=== PATIENT | female | born 1945 | race Caucasian/White ===

== ENCOUNTER → 2017-02-11 | Outpatient (CLI) | payer OTHER | LOC: FIMAGING 14:42 | PROVIDERS: ATTEND Family Medicine | DX: N63.23 Unspecified lump in the left breast, lower outer quadrant (principal) | CPT/HCPCS: 76641; G0204 ==

== ENCOUNTER 2017-02-17 06:46 | Day surgery (SDC) | payer OTHER ==
[2017-02-17] MEDS ORDERED: LR 1,000 ML IV ONE (07:17)
[2017-02-17 07:42] VITALS: PULSE 100
[2017-02-17] MEDS ORDERED: LIDO/EPI 1% **for epidural** 30 ML SDV ONE (08:00)
[2017-02-17] MEDS ORDERED: LIDOCAINE 1% 300 MG/30 ML SDV ONE (08:01)
[2017-02-17] MEDS ORDERED: BUPIVACAINE 0.5% 30 ML SDV ONE (08:02)
--- NOTE | 2017-02-17 08:04 | PDHPUP ---
History & Physical Update H&P update statement: This history and physical update is based on an assessment of the patient which was completed after admission or registration (within 24 hours), but prior to the surgery/procedure. H&P update: H&P reviewed & patient examined, no change in patient's condition since H&P completed
[2017-02-17 08:26] LABS: INR 1.24 (0.83-1.16); PROTIME(PATIENT) 15.8 SEC (12.0-15.0)
[2017-02-17] MEDS ORDERED: MIDAZOLAM 2 MG/2 ML VIAL ONE (08:34)
[2017-02-17] MEDS ORDERED: ROCURONIUM 50 MG/5 ML VIAL ONE ×2 (08:36→09:31)
[2017-02-17] MEDS ORDERED: PHENYLEPHRINE 10 MG/ML SDV ONE (08:36)
[2017-02-17] MEDS ORDERED: fentaNYL 100 MCG/2 ML INJ ONE (08:36)
[2017-02-17] MEDS ORDERED: PROPOFOL/EMULSION 500 MG/50 ML BOTTLE IV ONE (08:36)
[2017-02-17] MEDS ORDERED: LIDOCAINE 2% 5 ML SDV ONE (09:31)
[2017-02-17] MEDS ORDERED: ceFAZolin 1 GM VIAL ONE (09:31)
[2017-02-17] MEDS ORDERED: DEXAMETHASONE 4 MG/ML VIAL ONE (09:31)
[2017-02-17] MEDS ORDERED: ONDANSETRON 4 MG/2 ML VIAL ONE (09:31)
--- NOTE | 2017-02-17 09:39 | POSTANESTH ---
Post Anesthetic Evaluation Respiratory Status: Normal, Stable Level of Consciousness/Mental Status: Can Participate in Eval Pain Control: Adequate, Prn Tx Ordered Nausea/Vomiting Control: Adequate, Prn Tx Ordered
--- NOTE | 2017-02-17 09:42 | PDANEPAE ---
ANE History of Present Illness 71 year old female for excision supraclavicular node on right. ANE Past Medical History - Cardiovascular History Hx Hypertension: No Hx Arrhythmias: No Hx Chest Pain: No Hx Coronary Artery / Peripheral Vascular Disease: No Hx CHF / Valvular Disease: No Hx Palpitations: No Cardiovascular History Comment: CHOLESTEROL - Pulmonary History Hx COPD: Yes Hx Asthma/Reactive Airway Disease: No Hx Recent Upper Respiratory Infection: No Hx Oxygen in Use at Home: No Hx Sleep Apnea: No Sleep Apnea Screening Result - Last Documented: Negative Pulmonary History Comment: SPIRIVA - Neurologic History Hx Cerebrovascular Accident: No Hx Seizures: No Hx Dementia: No - Endocrine History Hx Diabetes: No - Renal History Hx Renal Disorders: Yes Renal History Comment: 18MTHS AGO CREATINE 1.6, NOW LOWER - Liver History Hx Hepatic Disorders: No - Neurological & Psychiatric Hx Hx Neurological and Psychiatric Disorders: No - Cancer History Hx Cancer: No - Congenital Disorder History Hx Congenital Disorders: No - GI History Hx Gastrointestinal Disorders: Yes Gastrointestinal History Comment: DIVERTICULITIS, COLOSTOMY - Other Health History Other Health History: NONE - Chronic Pain History Chronic Pain: No - Surgical History Prior Surgeries: RUPTURED COLON.RIGHT KNEE. BLOOD CLOT TO RIGHT FOOT. DEBRIDMENT OF RIGHT FOOT ANE Review of Systems Review of Systems: - Exercise capacity METS (RN): 4 METS ANE Patient History - Allergies Allergies/Adverse Reactions: oxycodone Allergy (Mild, Verified 02/13/17 15:41) Itching - Home Medications Home Medications: Atorvastatin Calcium 20 mg PO DAILY 02/13/17 [Last Taken 02/16/17] Warfarin Sodium 3 mg PO DAILY 02/13/17 [Last Taken 02/12/17] Aspirin 81mg (*) 81 mg PO DAILY 02/17/17 [Last Taken 02/16/17] Metoprolol Tartrate 25 mg PO DAILY 02/17/17 [Last Taken Unknown] - NPO status NPO Since - Liquids (Date): 02/16/17 NPO Since - Liquids (Time): 21:00 NPO Since - Solids (Date): 02/16/17 NPO Since - Solids (Time): 15:00 - Anes Hx Anes Hx: no prior problems - Smoking Hx Smoking Status: Former smoker - Family Anes Hx Family Hx Anesthesia Complications: NONE ANE Labs/Vital Signs - Vital Signs Blood Pressure: 123/72 Heart Rate: 100 Respiratory Rate: 16 O2 Sat (%): 91 Height: 157.48 cm Weight: 81.193 kg ANE Physical Exam - Airway Mallampati Score: Class 2 Mouth exam: dentures - ASA Status ASA Status: II ANE Anesthesia Plan Anesthesia Plan: GA w LMA
--- NOTE | 2017-02-17 10:11 | POSTOPPROG ---
Post Op Note Date of Operation: 02/17/17 Surgeon: Katarzyna Lombardi Anesthesiologist: andre Anesthesia: GET(General Endotracheal) Pre-op Diagnosis: lymphadenopathy Post-op Diagnosis: same Indication: 71 yo with lymphadenopathy Procedure: excise deep supraclav lymph node Findings: firm nodes Inf/Abcess present in the surg proc area at time of surgery?: No Specimen(s): lymph node
[2017-02-17] MEDS ORDERED: fentaNYL 100 MCG/2 ML INJ IVP PRN (10:19)
[2017-02-17] MEDS ORDERED: ceFAZolin 2 GM/SWFI 2 GM/20 ML SYR IVP ONE (10:19)
[2017-02-17] MEDS ORDERED: NALOXONE HCL 0.4 MG/ML INJ IVP PRN (10:19)
[2017-02-17] MEDS ORDERED: ONDANSETRON 4 MG/2 ML VIAL IVP PRN (10:19)
[2017-02-17] MEDS ORDERED: DEXAMETHASONE 4 MG/ML VIAL IVP PRN (10:19)
[2017-02-17] MEDS ORDERED: ALBUTEROL 3 ML DEYVIAL IH PRN (10:19)
[2017-02-17 11:19] VITALS: RESP 18; TEMP 97.7
[2017-02-17 11:28] VITALS: BP 119/81
[2017-02-17 11:35] VITALS: O2SAT 94
--- NOTE | 2017-02-17 14:24 | GOP ---
[f rep st] OPERATIVE REPORT DATE OF OPERATION: 02/17/2017 SURGEON: Katarzyna Lombardi MD ANESTHESIA: General. ANESTHESIOLOGIST: Lewis Adan MD. PREOPERATIVE DIAGNOSIS: Lymphadenopathy. POSTOPERATIVE DIAGNOSIS: Lymphadenopathy. PROCEDURE PERFORMED: Excision of deep supraclavicular lymph node, ultrasound- guided. FINDINGS: Firm lymphadenopathy. SPECIMENS: Lymph node for pathology. ESTIMATED BLOOD LOSS: 5 cc. INDICATIONS: Sarah Winston is a 71-year-old woman who was found to have significant mediastinal and paratracheal lymphadenopathy. She also has a lesion on her left breast. She presents for excision of a lymph node. DESCRIPTION OF PROCEDURE: Patient was brought into the operating room, placed supine on the table, and general anesthesia was administered. Her bilateral neck and chest were prepped and draped in the usual sterile fashion. I used the ultrasound, identified the trachea , the internal jugular vein, the carotid and the external jugular vein. In between the internal jugular vein and the external jugular vein was a solid nodule. I made an incision in a natural skin crease above the right clavicle. I deepened my dissection down through the subcutaneous tissues. I divided the platysma. I continued my dissection and the strap muscles. I continued my dissection, and carefully using scissors, was able to dissect tissue free. I continued to use ultrasound was able to identify the solid nodule. I grasped this with an Allis clamp and circumferentially dissected it. I clipped the base and removed the lymph node. I sent this to Pathology for fresh. Hemostasis was achieved in the cavity. I placed Pete in the wound. I closed the muscles with 3-0 Vicryl. I closed the skin with 3-0 Vicryl followed by 4-0 Monocryl. Mastisol, Steri-Strips, and a sterile dressing were applied. She was awakened in the operating room, extubated, and transferred to PACU in stable condition. /[id number]/MODL MTDD
== END 2017-02-17 11:45 | disposition home or self-care (01) ==
LOC: FSGY 06:46
PROVIDERS: ATTEND Surgery
PROC: 07T10ZZ Resection of Right Neck Lymphatic, Open Approach (ICD-10-PCS; principal; 2017-02-17 08:30)
DX: R59.1 Generalized enlarged lymph nodes (principal)
CPT/HCPCS: J0690; J1100; J2250; J2370; J2405; J2704; J3010

== ENCOUNTER 2017-02-24 08:56 | Inpatient (IN) | payer OTHER ==
--- NOTE | 2017-02-24 09:12 | CPEKG ---
Heart Rate: 98 RR Interval: 612 P-R Interval: 136 QRSD Interval: 78 QT Interval: 348 QTC Interval: 445 P [place]: 52 QRS [place]: 56 T Wave [place]: 48 EKG Severity - NORMAL ECG - EKG Impression: SINUS RHYTHM Electronically Signed By: Neeraj Hernandez 24-Feb-2017 09:39:03
[2017-02-24] MEDS ORDERED: HYDROCODONE/APAP 5/325 TAB PO ONE (09:31)
--- NOTE | 2017-02-24 09:34 | EDPHY ---
H & P Time Seen by Provider: 02/24/17 09:06 HPI/ROS: CHIEF COMPLAINT: Left-sided chest pain HISTORY OF PRESENT ILLNESS: Patient is a history of DVT and PE and this past Thursday night started having left sided chest pain which is worse with deep breath. She had a fever up to 101 at home. Chest pain is mild at rest but severe when she takes a deep breath associated with a little bit of a cough. She did stop her warfarin to have a right sided supraclavicular lymph node biopsy on February 17 and has not had her INR checked since. Chest pain does not radiate. Has been constant for the last 3 days. REVIEW OF SYSTEMS: Eye: no change in vision ENT: no sore throat Cardiac: HPI Pulmonary: HPI Abdomen: no vomiting, diarrhea, abdominal pain Musculoskeletal: No leg swelling Skin: no rash Neuro: no headache Constitutional: HPI : no urinary symptoms A comprehensive 10 point review of systems is otherwise negative aside from elements mentioned in the history of present illness. PAST MEDICAL HISTORY: Includes recent diagnosis of lung cancer, DVT and PE, colostomy with appliance, COPD Social history: here with spouse General Appearance: Alert and conversant, cooperative. Eyes: No scleral icterus. ENT, Mouth: Normal mucous membranes. Respiratory: Normal respiratory effort, breath sounds equal, lungs are clear to auscultation. Splinting. Cardiovascular: Regular rate and rhythm. Gastrointestinal: Abdomen is soft and non tender. Ostomy is soft. Neurological: Alert, face symmetric, normal motor and sensory in extremities. Skin: Warm and dry, no rashes. No urticaria. Musculoskeletal: No peripheral edema. No peripheral edema. Psychiatric: Not agitated. Emergency Department course/MDM: Unlikely to be ACS. Normal EKG. Plan for INR and labs to include troponin. Patient has at least a moderate probability for pulmonary embolism even if she has therapeutic INR. History of cancer, specifically lung cancer, tachycardic on arrival, pleuritic left-sided chest pain. Plan for CT angiography. Oral [place] as she has taken that before without any adverse reaction. 1050: CTA positive for small volume pulmonary embolism. Pain is much better. Plan to admit to the hospital with Lovenox subcu bridge until her INR is therapeutic. Smoking Status: Former smoker Constitutional: Initial Vital Signs Temperature (C) 37.1 C 02/24/17 08:57 Heart Rate 112 H 02/24/17 08:57 Respiratory Rate 18 02/24/17 08:57 Blood Pressure 126/80 H 02/24/17 08:57 O2 Sat (%) 94 02/24/17 08:57 O2 Delivery Mode Room Air Allergies/Adverse Reactions: oxycodone Allergy (Mild, Verified 02/24/17 08:58) Itching Home Medications: Medication Instructions Recorded Atorvastatin Calcium [Lipitor 20 20 mg PO HS 02/13/17 mg (*)] Warfarin Sodium [Coumadin 3MG (*)] 3 mg PO DAILY16 02/13/17 Aspirin EC [Aspirin EC 81 mg (*)] 81 mg PO HS 02/17/17 Ascorbic Acid [Vitamin C 500 mg 1,000 mg PO DAILY 02/24/17 (*)] Cholecalciferol Vit D3 [Vitamin D3 2,000 units PO DAILY 02/24/17 (*)] Folic Acid [Folic Acid 1 MG (*)] 1 mg PO HS 02/24/17 [place]/Supplements -Info Only 1 ea PO DAILY 02/24/17 Multivitamins [Multivitamin (*)] 1 each PO DAILY 02/24/17 Medical Decision Making - Diagnostics EKG Interpretation: 12-lead EKG interpreted by me; official reading is in trace master. My interpretation is sinus rhythm rate 98 no ischemic changes. Imaging Results: Imaging Impressions Chest/Thorax CTA 02/24/17 10:04 Impression: 1. Scattered pulmonary emboli, as above. Left lingular consolidation likely represents pulmonary infarct. 2. Bulky right mediastinal/hilar lymphadenopathy extending into the bilateral subclavicular regions is overall slightly decreased since prior exam. The patient has reported history of recently diagnosed right lung cancer. 3. Mild leftward bowing of the interventricular septum without reflux of contrast into the IVC or hepatic veins is of unclear clinical significance. The main pulmonary artery is normal in size. 4. Right upper lobe peripheral pleural-parenchymal thickening/nodularity which may represent the primary tumor. Dr. Browning discussed these findings by telephone with JANETT Fitzpatrick on 2017 at 10:48 hours. Differential Diagnosis: Differential diagnosis considered for chest pain including but not limited to myocardial ischemia, aortic dissection, pericarditis, pulmonary embolus, chest wall pain, pleural inflammation and pulmonary infectious causes. Consult/Admit Bed Type: [place] [id number] - Data Points Laboratory Results: Laboratory Results 02/24/17 09:00 02/24/17 09:15 02/24/17 02/24/17 02/24/17 09:15 09:15 09:00 WBC 9.63 10^3/uL H 10^3/uL (3.80-9.50) RBC 4.37 10^6/uL 10^6/uL (4.18-5.33) Hgb 14.1 g/dL g/dL (12.6-16.3) Hct 41.3 % % (38.0-47.0) MCV 94.5 fL fL (81.5-99.8) MCH 32.3 pg pg (27.9-34.1) MCHC 34.1 g/dL g/dL (32.4-36.7) RDW 13.7 % % (11.5-15.2) Plt Count 150 10^3/uL 10^3/uL (150-400) MPV 9.1 fL fL (8.7-11.7) Neut % (Auto) 73.0 % % (39.3-74.2) Lymph % (Auto) 14.5 % L % (15.0-45.0) [place] % (Auto) 10.9 % % (4.5-13.0) Eos % (Auto) 1.0 % % (0.6-7.6) Baso % (Auto) 0.3 % % (0.3-1.7) Nucleat RBC Rel Count 0.0 % % (0.0-0.2) Absolute Neuts (auto) 7.02 10^3/uL H 10^3/uL (1.70-6.50) Absolute Lymphs (auto) 1.40 10^3/uL 10^3/uL (1.00-3.00) Absolute Monos (auto) 1.05 10^3/uL H 10^3/uL (0.30-0.80) Absolute Eos (auto) 0.10 10^3/uL 10^3/uL (0.03-0.40) Absolute Basos (auto) 0.03 10^3/uL 10^3/uL (0.02-0.10) Absolute Nucleated RBC 0.00 10^3/uL 10^3/uL (0-0.01) Immature Gran % 0.3 % % (0.0-1.1) Immature Gran # 0.03 10^3/uL 10^3/uL (0.00-0.10) PT 21.0 SEC H SEC (12.0-15.0) INR 1.80 H (0.83-1.16) APTT 36.2 SEC SEC (23.0-38.0) Sodium 141 mEq/L mEq/L (134-144) Potassium 4.3 mEq/L mEq/L (3.5-5.2) Chloride 107 mEq/L mEq/L (97-110) Carbon Dioxide 21 mEq/l L mEq/l (22-31) Anion Gap 13 mEq/L mEq/L (8-16) BUN 11 mg/dL mg/dL (7-23) Creatinine 1.0 mg/dL mg/dL (0.6-1.0) Estimated GFR 55 Glucose 110 mg/dL H mg/dL (70-100) Calcium 9.6 mg/dL mg/dL (8.5-10.4) Troponin I < 0.012 ng/mL ng/mL (0.000-0.034) Medications Given: Hydrocodone Bitart/Acetaminophen ([place] 5/325) 1 - 2 tab PO Q4HRS PRN PRN Reason: Pain, Moderate Able to Take PO Stop: 03/06/17 13:43 Last Admin: 02/24/17 14:40 Dose: 2 tab Discontinued Medications Hydrocodone Bitart/Acetaminophen ([place] 5/325) 1 tab PO EDNOW ONE Stop: 02/24/17 09:32 Last Admin: 02/24/17 09:59 Dose: 1 tab Enoxaparin Sodium (Lovenox) 80 mg SC EDNOW ONE Stop: 02/24/17 10:59 Last Admin: 02/24/17 11:35 Dose: 80 mg Departure - Departure Disposition: [facility] Acute Clinical Impression: Pulmonary embolism Qualifiers: Pulmonary embolism type: other Chronicity: acute Acute cor pulmonale presence: without acute cor pulmonale Qualified Code(s): I26.99 - Other pulmonary embolism without acute cor pulmonale Condition: Good
[2017-02-24 09:45] LABS: PLATELET COUNT 150 10^3/uL (150-400)
[2017-02-24 09:54] LABS: INR 1.8 (0.83-1.16)
[2017-02-24] MEDS ORDERED: IOPAMIDOL (ISOVUE 370) 100 ML BTL IV ONE (10:10)
[2017-02-24] MEDS ORDERED: ENOXAPARIN 80 MG/0.8 ML SYR SC ONE (10:58)
[2017-02-24] MEDS ORDERED: ONDANSETRON DISINTEGRATING 4 MG TAB PO PRN (11:31)
[2017-02-24] MEDS ORDERED: ONDANSETRON 4 MG/2 ML VIAL IVP PRN (11:31)
[2017-02-24] MEDS ORDERED: ACETAMINOPHEN 325 MG TAB PO PRN (11:31)
--- NOTE | 2017-02-24 14:30 | ASMTCASEMG ---
Living Arrangements What is your living Answers: With Spouse arrangement? Who do you live with? Type Of Residence What kind of residence do Answers: House you live in? Discharge Plan Comments Coordination Status Comments Notes: Pt is a 71 y/o female admitted for left sided chest pain. Pt will most likely d/c independent when medically stable w/ supportive . No therapies ordered at this time. CM available for d/c needs. Plan: Independent Date Signed: 02/24/2017 02:29 PM Electronically Signed By:YAIR Norwood
[2017-02-24] MEDS: HYDROCODONE/APAP 5/325 TAB PO PRN ×3 (14:40→22:40)
[2017-02-24] MEDS ORDERED: WARFARIN SODIUM 5 MG TAB PO SCH (16:00)
[2017-02-24] MEDS ORDERED: WARFARIN SODIUM 3 MG TAB PO SCH ×2 (16:00)
[2017-02-24] MEDS ORDERED: SIMETHICONE 80 MG TAB CHEW PO PRN (19:14)
--- NOTE | 2017-02-24 19:45 | GHP ---
[f rep st] HISTORY AND PHYSICAL DATE OF ADMISSION: 02/24/2017 CHIEF COMPLAINT: Chest pain, new diagnosis pulmonary embolism. HISTORY OF PRESENT ILLNESS: The patient is a 71-year-old female who was recently diagnosed with meta static adenocarcinoma with a lung primary on a lymph node biopsy that was performed on 02/17/2017 as an outpatient by Dr. Lombardi. She had been on Coumadin because of a lower extremity DVT previously, bu t this was held prior to the procedure and then restarted after the procedure. She was not on bridgi ng Lovenox. She reports that about 3 days ago she was woken from sleep with a sharp pain in her left lateral chest that has continued. She had some shortness of breath intermittently. She noted some intermittent low-grade temperatures and thought maybe she was getting a viral illness, but she report s that last night her temperature went up to 101, so she came to the emergency department for evaluat ion. She had a CT scan and was found to have multiple pulmonary emboli. She was admitted to the [facility] for observation because of the comorbidity of newly diagnosed metastatic adenocarcinoma. She is seeing Dr. Okeefe at the [facility] but has not initiated any therapies as th ey are still doing staging evaluations. She is scheduled to do followup labs, CAT scans, MRIs at [facility] in the next few weeks. She currently denies shortness of breath. She still has mild left-sided chest pain in a point on her left lateral side, but denies any anterior chest pain. She denies any vomiting or diarrhea. She de nies feeling feverish today. PAST MEDICAL HISTORY: Newly diagnosed metastatic adenocarcinoma with a lung primary, pending staging and therapies with Dr. Okeefe at [facility]. History of DVT, chronic anticoagulati on. History of diverticulitis, status post rupture. Glucose intolerance. Peripheral artery disease . Previous history of renal insufficiency. Hypertension, hyperlipidemia, and COPD. PAST SURGICAL HISTORY: Colon resection in 2013 with a colostomy. Stent in the right lower extremity and a lymph node biopsy. ALLERGIES: Oxycodone. FAMILY HISTORY: Noncontributory. SOCIAL HISTORY: She is , with 3 children. She denies any alcohol use. She is a former tobac co user with over a 50-pack year history, but quit in 2009. REVIEW OF SYSTEMS: Negative, except as noted above. MEDICATIONS: Multivitamin daily, vitamin C daily, aspirin 81 mg daily, 20 mg Lipitor nightly, vitami n D3 2000 units daily, folic acid 1 mg nightly, Spiriva inhaler daily, Coumadin 3 mg on Thursday, , Thursday, , and Thursday, 4.5 mg on Thursday and Thursday. PHYSICAL EXAMINATION: GENERAL: She is a very pleasant, elderly female in no apparent distress. VIT AL SIGNS: Blood pressure is 128/61, heart rate of 85. Pulse ox is 93% on room air. Temperature is 99.3. GENERAL: She is a very pleasant, elderly female in no apparent distress. HEENT: Normocephal ic, atraumatic. Extraocular movements are intact. Oral cavity: Oropharynx is moist. NECK: Supple . No lymphadenopathy or JVD noted. CARDIOVASCULAR: Regular rate and rhythm, without murmur. LUNGS : Clear to auscultation bilaterally. No rhonchi, wheezes, or crackles. ABDOMEN: Soft, normoactive bowel sounds, nontender, nondistended. Colostomy site clean, dry, and intact. BREASTS: Deferred. : Deferred. SKIN: No visible rashes. EXTREMITIES: She has trace to 1+ edema bilaterally (says that is chronic for her). NEURO: Nonfocal. PSYCH: Awake and oriented. No evidence of significan t depression or anxiety. LABORATORY DATA: White blood cell count of 9.6, hemoglobin 14.1, hematocrit of 41.3, platelet count of 150. INR is 1.8. Chemistry: Sodium 141, potassium 4.3, chloride 107, CO2 of 21, BUN of 11, crea tinine 1.0, glucose 110, calcium 9.6, troponin less than 0.12. Chest CT personally reviewed by me sh ows scattered pulmonary emboli in the right middle lobe, right posterior basal, right superior segmen abran and the left inferior lingular arterial branches, also consolidation in the lingula, likely from infarction. Also noting significant peribronchial nodules, right upper lobe thickening/nodularity, b ulky mediastinal and hilar lymphadenopathy that go into the supraclavicular areas and nodes in the ri ght hilum that impinge upon the right pulmonary arteries, paratracheal masses. Degenerative changes at the spine. EKG shows sinus rhythm with a normal rate, no ST changes noted, normal axis. ASSESSMENT/PLAN: 1. Acute pulmonary emboli with likely lingular infarct. She is subtherapeutic on Coumadin that had recently been held for a procedure. We will continue with her routine doses as she reports these hav e been stable for several years. Is given Lovenox at treatment dosing. Anticipate that she may be a ble to discharge tomorrow if vital signs remain stable and we were able to arrange for home Lovenox b ridging if still needed. She is not hypoxic. She does not appear to be in respiratory distress curr ently. 2. Newly diagnosed metastatic adenocarcinoma of the lung. She is pending outpatient staging and jeremy atment. If she is staying more than observation status, would consider consulting Hematology/Oncolog y to see if they want to start any of the workup as an inpatient. 3. Hyperlipidemia. Continue home medications. 4. Hypertension. Continue home medications. 5. Deep vein thrombosis. Anticoagulation as above. Full code status. DISPOSITION: Admitted for observation status as likely able to go home tomorrow if vitals stable, if she remains stable overnight. PCP is Dr. Chan, and PCP Oncology is Dr. Okeefe. Copy requested to: Dr. Sary Chan /[id number]/MODL
[2017-02-24] MEDS: ENOXAPARIN 80 MG/0.8 ML SYR SC SCH (20:37)
[2017-02-24] MEDS ORDERED: ATORVASTATIN CALCIUM 20 MG TAB PO SCH (21:00)
[2017-02-24] MEDS ORDERED: ASPIRIN EC 81 MG TAB PO SCH (21:00)
[2017-02-24] MEDS ORDERED: FOLIC ACID 1 MG TAB PO SCH (21:00)
--- NOTE | 2017-02-24 22:05 | SOAPPROG ---
SOAP Progress Note Assessment/Plan: Assessment: s/p excision of deep supraclavicular lymph node dx lung cancer readmitted for dvt Incision cdi F/U prn Plan: 02/24/17 22:03 Objective: Vital Signs Temp Pulse Resp BP Pulse Ox 37.2 C 103 H 18 117/69 92 02/24/17 20:00 02/24/17 20:00 02/24/17 20:00 02/24/17 20:00 02/24/17 20:00 PT 21.0 SEC (12.0-15.0) H 02/24/17 09:15 INR 1.80 (0.83-1.16) H 02/24/17 09:15 ICD10 Worksheet Patient Problems: Problems Problem Status Onset Pulmonary embolism Acute
[2017-02-25] MEDS: HYDROCODONE/APAP 5/325 TAB PO PRN ×2 (05:10→09:48)
[2017-02-25 06:00] LABS: INR 2.03 (0.83-1.16)
[2017-02-25 07:58] VITALS: BP 105/68; PULSE 111; RESP 20; TEMP 98.6; O2SAT 94
[2017-02-25] MEDS: ENOXAPARIN 80 MG/0.8 ML SYR SC SCH (08:05)
[2017-02-25] MEDS ORDERED: CHOLECALCIFEROL VIT D3 1,000 UNITS TAB PO SCH (09:00)
[2017-02-25] MEDS ORDERED: ASCORBIC ACID 500 MG TAB PO SCH (09:00)
[2017-02-25] MEDS ORDERED: TIOTROPIUM INHALER 18 MCG/DOSE 5 DOSE/MDI IH SCH (09:00)
--- NOTE | 2017-02-25 10:54 | HOSPPROG ---
Hospitalist Progress Note Assessment/Plan: Patient is a 71-year-old female who was recently diagnosed with metastatic adenocarcinoma of the lung. She had a lymph node biopsy performed on February 17. She had been on Coumadin because the lower extremity DVT previously but this was held prior to procedure and then restarted. She had a CT scan and was found to have multiple pulmonary emboli. Today is my 1st encounter with the patient. Chart reviewed. * pulmonary emboli -on Coumadin -she is not hypoxic -will bridge with Lovenox twice daily until she is therapeutic for 2 days -CTA shows likely a pulmonary infarct -she has had some episodic chest pain related to the pulmonary emboli, troponin is negative -she will get her INR checked this Thursday * newly diagnosed stood metastatic adenocarcinoma of the lung -will be seen Dr. Okeefe in the outpatient setting * hyperlipidemia * hypertension -blood pressure is 105/68 * plan. Discharge home with further follow up with Dr. Okeefe. Subjective: Private is feeling very well and is anxious to be discharged. She is not short of breath while walking. Objective: Vital Signs Temp Pulse Resp BP Pulse Ox 37 C 111 H 20 105/68 94 02/25/17 07:54 02/25/17 07:54 02/25/17 07:54 02/25/17 07:54 02/25/17 07:54 PT 23.0 SEC (12.0-15.0) H 02/25/17 05:15 INR 2.03 (0.83-1.16) H 02/25/17 05:15 - Physical Exam Constitutional: no apparent distress, appears nourished, not in pain Eyes: PERRL Ears, Nose, Mouth, Throat: hearing normal Cardiovascular: regular rate and rhythym Respiratory: no respiratory distress, clear to auscultation Skin: warm Musculoskeletal: full muscle strength Neurologic: AAOx3 Psychiatric: interacting appropriately, not anxious, not encephalopathic ICD10 Worksheet Patient Problems: Problems Problem Status Onset Pulmonary embolism Acute
--- NOTE | 2017-02-25 12:02 | GDS ---
[f rep st] DISCHARGE SUMMARY DISCHARGE DIAGNOSES: 1. Pulmonary emboli. 2. Newly-diagnosed metastatic adenocarcinoma of the lung. 3. Hyperlipidemia. 4. Hypertension. HISTORY OF PRESENT ILLNESS: Briefly, the patient is a 71-year-old female who was recently diagnosed with metastatic adenocarcinoma of the lung. She had a lymph node biopsy performed on 02/17 as an outpatient. She had been on Coumadin because of a lower extremity DVT that was held prior to procedure and then restarted after the procedure. She had 3 days where she had a sharp pain in the left lateral chest area, and it was noted that she had a pulmonary emboli. A CT of the chest showed scattered pulmonary in the right middle lobe, right posterior basal, right superior segmental, and left inferior lingular arterial branches. Also consolidation in the lingula, likely from an infarction. She is feeling markedly better today. She is no longer short of breath but having some intermittent pain with deep breathing. She will be discharged home and further followup with Dr. Okeefe in the outpatient setting. HOSPITAL COURSE: 1. Pulmonary emboli. She had a CTA that shows likely a pulmonary infarct. She will get her INR checked on this Thursday. Will bridge her on Lovenox twice a day until she is therapeutic with an INR of 2.5 for 2 days. 2. Newly-diagnosed metastatic adenocarcinoma of the lung. She will follow up with Dr. Okeefe. 3. Hyperlipidemia, statin. 4. Hypertension. Blood pressure is 105/68. DISCHARGE CONDITION: Stable. Blood pressure is 105/68, heart rate was 90 during my evaluation. O2 sats on room air 94%, temperature is 37 degrees Celsius. MEDICATIONS AT DISCHARGE: Please see the EMR. DISCHARGE INSTRUCTIONS: 1. To follow up with Dr. Okeefe in the outpatient setting. 2. If she continues to have any shortness of breath or chest pain, to return to the ER. Copy requested to: Sary /[id number]/MODL MTDD
[2017-02-25] MEDS ORDERED: WARFARIN SODIUM 3 MG TAB PO SCH (16:00)
== END 2017-02-25 13:03 | disposition home or self-care (01) | DRG 176 ==
LOC: OBSVTOIN 11:32 → F3E 12:45
PROVIDERS: ADMIT Family Medicine; ATTEND Internal Medicine
DX: I26.99 Other pulmonary embolism without acute cor pulmonale (principal); C34.90 Malignant neoplasm of unspecified part of unspecified bronchus or lung; C77.1 Secondary and unspecified malignant neoplasm of intrathoracic lymph nodes; E74.39 Other disorders of intestinal carbohydrate absorption; I73.9 Peripheral vascular disease, unspecified; I10 Essential (primary) hypertension; E78.5 Hyperlipidemia, unspecified; J44.9 Chronic obstructive pulmonary disease, unspecified; Z79.01 Long term (current) use of anticoagulants; Z86.718 Personal history of other venous thrombosis and embolism
CPT/HCPCS: J1650; Q9967

== ENCOUNTER → 2017-03-03 | Outpatient (CLI) | payer OTHER ==
[~2017-03-03] MED LIST: GADOBUTROL 10 ML VIAL IVP ONE
== END ==
LOC: FIMAGING 07:13
PROVIDERS: ATTEND Internal Medicine Hematology & Oncology
DX: Z03.89 Encounter for observation for other suspected diseases and conditions ruled out (principal); C34.90 Malignant neoplasm of unspecified part of unspecified bronchus or lung
CPT/HCPCS: 70553; A9585

== ENCOUNTER 2017-03-13 06:52 | Day surgery (SDC) | payer OTHER ==
[2017-03-13] MEDS ORDERED: ceFAZolin 2 GM/SWFI 2 GM/20 ML SYR IVP ONE (06:57)
[2017-03-13] MEDS ORDERED: LR 1,000 ML IV ONE (06:58)
[2017-03-13] MEDS ORDERED: LIDOCAINE 1% 2 ML INJ ID PRN (06:58)
--- NOTE | 2017-03-13 07:14 | PDHPUP ---
History & Physical Update H&P update statement: This history and physical update is based on an assessment of the patient which was completed after admission or registration (within 24 hours), but prior to the surgery/procedure. H&P update: no change in patient's condition since H&P completed
--- NOTE | 2017-03-13 07:40 | GHP ---
[f rep st] HISTORY AND PHYSICAL DATE OF ADMISSION: 03/13/2017 CHIEF COMPLAINT: Lung cancer. HISTORY OF PRESENT ILLNESS: The patient is a 71-year-old woman who was found to have multiple solid right-sided mediastinal and hilar masses in early January. I took her to the operating room to perf orm excisional biopsy of a deep supraclavicular lymph node, and she was found to have lung cancer. S he presents for port placement. PAST MEDICAL HISTORY: DVT, diverticulitis, peripheral artery disease, renal insufficiency, lung canc er. PAST SURGICAL HISTORY: Colon resection, stent, lymph node removal. MEDICATIONS: Unchanged. ALLERGIES: Oxycodone. FAMILY HISTORY: No pertinent family history. SOCIAL HISTORY: She quit using tobacco in 2009. She had a 72-[id number]-vooe history. She has 3 children . She is . REVIEW OF SYSTEMS: A 10-point review of systems negative except for right inner thigh pain. PHYSICAL EXAMINATION: GENERAL: Pleasant, well-nourished, well-groomed woman, in no acute distress. HEENT: Normocephalic, atraumatic. No gross hearing deficits. Mucous membranes moist. Pupils equa l and round. LUNGS: No increased work of breathing. CARDIAC: Regular rate. NECK: Well-healed in cision. SKIN: Warm and dry. She has some ecchymosis and firmness on her right inner thigh. MUSCUL OSKELETAL: Normal gait. Normal nails. PSYCH: Mood and affect normal. NEURO: Grossly intact. IMPRESSION AND PLAN: A 71-year-old with lung cancer, requires port placement. We will do this on th e left side. The risks and benefits, including, but not limited to, stroke, heart attack, , blo od clots, infection, bleeding, damage to surrounding structures, pneumothorax were all discussed. josefina had her questions answered to her satisfaction and signed the informed consent. /[id number]/MODL
[2017-03-13] MEDS ORDERED: BUPIVACAINE 0.5% 30 ML SDV ONE (07:56)
[2017-03-13 07:57] LABS: INR 1.38 (0.83-1.16); PROTIME(PATIENT) 17.1 SEC (12.0-15.0)
--- NOTE | 2017-03-13 08:36 | PDANEPAE ---
ANE Past Medical History - Cardiovascular History Hx Hypertension: No Hx Arrhythmias: No Hx Chest Pain: No Hx Coronary Artery / Peripheral Vascular Disease: Yes Hx CHF / Valvular Disease: No Hx Palpitations: No Cardiovascular History Comment: CHOLESTEROL , PE 02/24/17 - Pulmonary History Hx COPD: Yes Hx Asthma/Reactive Airway Disease: No Hx Recent Upper Respiratory Infection: No Hx Oxygen in Use at Home: No Hx Sleep Apnea: No Sleep Apnea Screening Result - Last Documented: Negative Pulmonary History Comment: SPIRIVA - Neurologic History Hx Cerebrovascular Accident: No Hx Seizures: No Hx Dementia: No - Endocrine History Hx Diabetes: No Hypothyroid: No Hyperthyroid: No Obesity: yes, mild - Renal History Hx Renal Disorders: No Renal History Comment: 18MTHS AGO CREATINE 1.6, NOW LOWER - Liver History Hx Hepatic Disorders: No - Neurological & Psychiatric Hx Hx Neurological and Psychiatric Disorders: Yes Neurological / Psychiatric History Comment: neuropathy R/T surgery - Cancer History Hx Cancer: Yes - Congenital Disorder History Hx Congenital Disorders: No - GI History GERD: no Hx Gastrointestinal Disorders: Yes Gastrointestinal History Comment: DIVERTICULITIS, COLOSTOMY - Other Health History Other Health History: none - Chronic Pain History Chronic Pain: No - Surgical History Prior Surgeries: RUPTURED COLON.RIGHT KNEE. BLOOD CLOT TO RIGHT FOOT. DEBRIDMENT OF RIGHT FOOT ANE Review of Systems Review of Systems: - Exercise capacity METS (RN): 4 METS ANE Patient History - Allergies Allergies/Adverse Reactions: oxycodone Allergy (Mild, Verified 02/24/17 08:58) Itching - Home Medications Home Medications: Atorvastatin Calcium [Lipitor 20 mg (*)] 02/13/17 [Last Taken 03/12/17] Warfarin Sodium [Coumadin 3MG (*)] 4.5 mg PO 02/13/17 [Last Taken 03/06/17] Aspirin EC [Aspirin EC 81 mg (*)] 02/17/17 [Last Taken 03/11/17] Ascorbic Acid [Vitamin C 500 mg (*)] 02/24/17 [Last Taken 03/06/17] Cholecalciferol Vit D3 [Vitamin D3 (*)] 02/24/17 [Last Taken 03/06/17] Folic Acid [Folic Acid 1 MG (*)] 02/24/17 [Last Taken 03/06/17] Herbals/Supplements -Info Only 02/24/17 [Last Taken 03/06/17] Multivitamins [Multivitamin (*)] 02/24/17 [Last Taken 03/12/17] Tiotropium Inhaler [Spiriva Inhaler (RX)] 02/24/17 [Last Taken 03/13/17] Warfarin Sodium [Coumadin 3MG (*)] 02/24/17 [Last Taken 03/09/17] Enoxaparin [Lovenox 80 MG (*)] 03/12/17 [Last Taken 03/12/17] Hydrocodone/APAP 5/325 [Bangs 5/325 (*)] 03/12/17 [Last Taken Unknown] - NPO status NPO Since - Liquids (Date): 03/13/17 NPO Since - Liquids (Time): 04:00 NPO Since - Solids (Date): 03/12/17 NPO Since - Solids (Time): 17:00 - Anes Hx Anes Hx: no prior problems - Smoking Hx Smoking Status: Former smoker - Alcohol Use Alcohol Use: Rarely - Family Anes Hx Family Anes Hx: neg - N/A Family Hx Anesthesia Complications: NONE ANE Labs/Vital Signs - Vital Signs Blood Pressure: 123/74 Heart Rate: 100 Respiratory Rate: 16 O2 Sat (%): 91 Height: 157.48 cm Weight: 79.379 kg ANE Physical Exam - Airway Neck exam: FROM Mouth exam: dentures - Cardiovascular Cardiovascular: regular rate and rhythym, no murmur, rub, or gallop, systolic murmur - ASA Status ASA Status: III ANE Anesthesia Plan Anesthesia Plan: GA w LMA Total IV Anesthesia: No
[2017-03-13] MEDS ORDERED: fentaNYL 100 MCG/2 ML INJ ONE (08:48)
[2017-03-13] MEDS ORDERED: PROPOFOL 200 MG/20 ML VIAL ONE (08:48)
[2017-03-13] MEDS ORDERED: ONDANSETRON 4 MG/2 ML VIAL ONE (08:49)
[2017-03-13] MEDS ORDERED: DEXAMETHASONE 4 MG/ML VIAL ONE (08:50)
[2017-03-13] MEDS ORDERED: LIDOCAINE 2% 5 ML SDV ONE (08:51)
[2017-03-13] MEDS ORDERED: PHENYLEPHRINE HCL 100 MCG/ML SYR ONE (09:00)
[2017-03-13] MEDS ORDERED: PROMETHAZINE HCL 25 MG/ML INJ IVP PRN (09:22)
[2017-03-13] MEDS ORDERED: NALOXONE HCL 0.4 MG/ML INJ IVP PRN (09:22)
[2017-03-13] MEDS ORDERED: ONDANSETRON 4 MG/2 ML VIAL IVP PRN (09:22)
[2017-03-13] MEDS ORDERED: fentaNYL 100 MCG/2 ML INJ IVP PRN (09:22)
[2017-03-13] MEDS ORDERED: OXYCODONE/APAP 5/325 TAB PO PRN (09:22)
[2017-03-13] MEDS ORDERED: LR 500 ML IV PRN (09:22)
[2017-03-13] MEDS ORDERED: ACETAMINOPHEN 500 MG TAB PO PRN (09:22)
[2017-03-13] MEDS ORDERED: HYDROCODONE/APAP 5/325 TAB PO PRN (09:22)
[2017-03-13 11:18] VITALS: PULSE 84; RESP 16
[2017-03-13 11:59] VITALS: BP 124/80; O2SAT 96
[2017-03-13 12:41] VITALS: TEMP 97.9
== END 2017-03-13 12:41 | disposition home or self-care (01) ==
LOC: FSGY 06:52
PROVIDERS: ATTEND Surgery
PROC: 02HV33Z Insertion of Infusion Device into Superior Vena Cava, Percutaneous Approach (ICD-10-PCS; principal; 2017-03-13 08:30)
DX: C34.90 Malignant neoplasm of unspecified part of unspecified bronchus or lung (principal); C77.1 Secondary and unspecified malignant neoplasm of intrathoracic lymph nodes; I82.431 Acute embolism and thrombosis of right popliteal vein
CPT/HCPCS: C1788; J0690; J1100; J1642; J2370; J2405; J2704; J3010

== ENCOUNTER 2017-05-02 16:34 | Inpatient (IN) | payer OTHER ==
[2017-05-02] MEDS ORDERED: PHYTONADIONE 10 MG in NS 50 ML IV ONE (16:43)
[2017-05-02] MEDS ORDERED: NS 1,000 ML IV ONE (16:43)
--- NOTE | 2017-05-02 16:51 | EDPHY ---
HPI/HX/ROS/PE/MDM Narrative: CHIEF COMPLAINT: Coffee ground stool and emesis HISTORY OF PRESENT ILLNESS: The patient is an anticoagulated (Warfarin) 71 y/ o female with a history of lung cancer being treated with IV chemo arriving via EMS for coffee ground stool, emesis, and abdominal pain, onset yesterday. Her last chemo treatment was Thursday, 5 days ago. Her last INR was 3.6 when measured yesterday. She developed coffee ground stool in her colostomy bag yesterday accompanied by abdominal pain. Patient reports a history of a ruptured colon in the remote past resulting in a colostomy This morning, she developed coffee ground emesis, dizziness, and lethargy. She will answer questions when spoken to but seems confused and sleepy. She denies shortness of breath, chest pain, or any other associated symptoms. She has a chemo port in her left chest. Patient family reports that her lung cancer was discovered when she had a chest CT performed after persistent tachycardia. They report that she is typically tachycardic to the 110-130 range. She is on warfarin for DVT and PE. s. Review of systems limited secondary to patient's clinical condition and altered mental status. PAST MEDICAL HISTORY: Lung cancer, history of ruptured colon, colostomy, DVT, PE. SOCIAL HISTORY: Lives in [place], , retired VITAL SIGNS: Reviewed by me. BP 61/48. Tachycardic at 130. GENERAL: Extremely pale-appearing, somnolent, answers questions when spoken to. Reports feeling lightheaded. HEENT: Atraumatic. Eyes: Pale conjunctiva. No icterus, no injection. Mouth: Pale lips, pale mucous membranes. No erythema or lesions. Neck: supple with no adenopathy. LUNGS: Clear to auscultation bilaterally, no wheezes, rhonchi or rales. CARDIAC: Regular tachycardia, no rubs, murmurs or gallops. ABDOMEN: Soft, no guarding or rebound. No distension. Colostomy bag in the right lower quadrant with melena present. BACK: No CVA tenderness. EXTREMITIES: No trauma. No edema. Range of motion is normal throughout. NEURO: Lethargic but arousable, oriented x3, grossly nonfocal. SKIN: Extreme pallor. Warm and dry. PSYCHIATRIC: Normal mentation, no agitation. ED Course: 12-LEAD EKG: Please see the full report in [facility]. My interpretation: Sinus tachycardia, borderline prolonged QT interval The patient presents with coffee ground stool, emesis, and abdominal pain onset yesterday, 1 day ago. She is currently receiving chemo for lung cancer, last treatment Thursday, 5 days ago. Her INR was 3.6 yesterday. She is somnolent but answers questions. Her BP is in the 60s/40s. I explained she would need a blood transfusion and she agreed. Plan for fluid resuscitation, emergent transfusion , labs, reversal of warfarin if needed. 5:30 PM- I spoke with Dr. Centeno, gastroenterology, regarding this patient. He will follow in the hospital. Patient's INR today is 2.9. The patient did received vitamin K. Dr. Centeno asked me to reverse the warfarin; he will follow in the hospital. Patient's course was discussed with Dr Locke. She will be admitted to the ICU. H&H: 7 and 22. INR today 2.92. Troponin negative. Critical care time spent by me, Dr. Holguin exclusively with this patient was 35 minutes, exclusive of PA time and exclusive of procedures. The organ system at risk was gastrointestinal and I gave IV fluids, blood transfusion, reversal of warfarin, urgent consultation with Gastroenterology, and admission to the ICU to prevent worsening of the patients condition. Critical care time included obtaining history, performing a physical exam, bedside monitoring of interventions, collecting and interpreting tests and discussion with consultants but not including time spent performing procedures. MDM: Differential diagnoses for the patient's symptom complex was considered including but not limited to hemorrhagic shock, over anticoagulated, upper GI bleed, lower GI bleed, blood loss anemia. - Data Points Imaging Results: Imaging Impressions Chest X-Ray 05/02/17 16:45 Impression: 1. Clear lungs. No acute process. 2. Decreasing right paratracheal soft tissue mass since 2 months prior. Laboratory Results: Laboratory Results 05/02/17 16:45 05/02/17 16:45 05/02/17 05/02/17 05/02/17 16:50 16:50 16:45 WBC RBC Hgb POC Hgb Hct POC Hct MCV MCH MCHC RDW Plt Count MPV Neut % (Auto) Lymph % (Auto) [place] % (Auto) Eos % (Auto) Baso % (Auto) Nucleat RBC Rel Count Absolute Neuts (auto) Absolute Lymphs (auto) Absolute Monos (auto) Absolute Eos (auto) Absolute Basos (auto) Absolute Nucleated RBC Immature Gran % Seg Neutrophils % Band Neutrophils % Lymphocytes % Monocytes % Eosinophils % Immature Gran # Absolute Seg Neuts Absolute Band Neuts Absolute Lymphocytes Absolute Monocytes Absolute Eosinophils Toxic Granulation Platelet Estimate Hypochromasia Microcytic Cells Oval Macrocytes PT 30.4 SEC H SEC (12.0-15.0) INR 2.92 H (0.83-1.16) APTT 69.5 SEC H SEC (23.0-38.0) POC Sodium Sodium 137 mEq/L mEq/L (135-145) POC Potassium Potassium 5.2 mEq/L mEq/L (3.5-5.2) POC Chloride Chloride 99 mEq/L mEq/L (97-110) Carbon Dioxide 23 mEq/l mEq/l (22-31) Anion Gap 15 mEq/L mEq/L (8-16) POC BUN BUN 65 mg/dL H mg/dL (7-23) Creatinine 1.1 mg/dL H mg/dL (0.6-1.0) POC Creatinine Estimated GFR 49 Glucose 192 mg/dL H mg/dL (70-100) POC Glucose Calcium 8.7 mg/dL mg/dL (8.5-10.4) Troponin I < 0.012 ng/mL ng/mL (0.000-0.034) Patient ABO/Rh A POSITIVE Antibody Screen NEGATIVE Crossmatch IS Only See Detail 05/02/17 05/02/17 05/02/17 16:45 16:45 16:44 WBC 2.93 10^3/uL L 10^3/uL (3.80-9.50) RBC 2.23 10^6/uL L 10^6/uL (4.18-5.33) Hgb 7.5 g/dL L g/dL (12.6-16.3) POC Hgb 7.8 gm/dL L gm/dL (12.6-16.3) Hct 22.1 % L % (38.0-47.0) POC Hct 23 % L % (38-47) MCV 99.1 fL fL (81.5-99.8) MCH 33.6 pg pg (27.9-34.1) MCHC 33.9 g/dL g/dL (32.4-36.7) RDW 18.2 % H % (11.5-15.2) Plt Count 130 10^3/uL L 10^3/uL (150-400) MPV 11.1 fL fL (8.7-11.7) Neut % (Auto) Not Reported Lymph % (Auto) Not Reported [place] % (Auto) Not Reported Eos % (Auto) Not Reported Baso % (Auto) Not Reported Nucleat RBC Rel Count 0.0 % % (0.0-0.2) Absolute Neuts (auto) Not Reported Absolute Lymphs (auto) Not Reported Absolute Monos (auto) Not Reported Absolute Eos (auto) Not Reported Absolute Basos (auto) Not Reported Absolute Nucleated RBC 0.00 10^3/uL 10^3/uL (0-0.01) Immature Gran % Not Reported Seg Neutrophils % 62 % % Band Neutrophils % 3 % % Lymphocytes % 30 % % Monocytes % 4 % % Eosinophils % 1 % % Immature Gran # Not Reported Absolute Seg Neuts 1.82 10^/uL 10^/uL (1.70-6.50) Absolute Band Neuts 0.09 10^3/uL 10^3/uL (0.00-0.70) Absolute Lymphocytes 0.88 10^3/uL L 10^3/uL (1.00-3.00) Absolute Monocytes 0.12 10^3/uL L 10^3/uL (0.30-0.80) Absolute Eosinophils 0.03 10^3/uL 10^3/uL (0.03-0.40) Toxic Granulation PRESENT H Platelet Estimate DECREASED L (ADEQ) Hypochromasia 1+ H Microcytic Cells 1+ H Oval Macrocytes 1+ H PT REJ INR REJ APTT REJ POC Sodium 135 mEq/L mEq/L (135-145) Sodium POC Potassium 4.9 mEq/L mEq/L (3.3-5.0) Potassium POC Chloride 100 mEq/L mEq/L (97-110) Chloride Carbon Dioxide Anion Gap POC BUN 60 mg/dL H mg/dL (7-23) BUN Creatinine POC Creatinine 1.2 mg/dL H mg/dL (0.6-1.0) Estimated GFR Glucose POC Glucose 215 mg/dL H mg/dL (70-100) Calcium Troponin I Patient ABO/Rh Antibody Screen Crossmatch IS Only Medications Given: Ondansetron HCl (Zofran) 4 mg IVP Q4HRS PRN PRN Reason: Nausea/Vomiting, Can't Take PO Stop: 10/29/17 17:32 Last Admin: 05/02/17 17:54 Dose: 4 mg Pantoprazole Sodium (Protonix) 40 mg IVP Q6H AZALIA Stop: 10/29/17 17:44 Last Admin: 05/02/17 19:34 Dose: Not Given Promethazine HCl (Phenergan) 25 mg IVP Q6HRS PRN PRN Reason: Nausea/Vomiting, Can't Take PO Stop: 10/29/17 19:14 Last Admin: 05/02/17 19:20 Dose: 25 mg Discontinued Medications Sodium Chloride (Ns) 1,000 mls @ 0 mls/hr IV ONCE ONE; Wide Open PRN Reason: Protocol Stop: 05/02/17 16:44 Last Admin: 05/02/17 17:00 Dose: 1,000 mls Phytonadione 10 mg/ Sodium (Chloride) 51 mls @ 102 mls/hr IV ONCE ONE Stop: 05/02/17 17:12 Last Admin: 05/02/17 17:54 Dose: 51 mls Prothrombin Complex Concent (Human) (Kcentra) 500 unit in 20 mls @ 0 mls/hr IV ONCE ONE; Per Protocol PRN Reason: Protocol Stop: 05/02/17 17:34 Last Admin: 05/02/17 18:11 Dose: Not Given Prothrombin Complex Concent (Human) (Kcentra) 1,500 unit in 60 mls @ 0 mls/hr IV ONCE ONE; Per Protocol PRN Reason: Protocol Stop: 05/02/17 17:43 Last Admin: 05/02/17 18:17 Dose: 60 mls Pantoprazole Sodium (Protonix) 80 mg IVP ONCE ONE Stop: 05/02/17 17:36 Last Admin: 05/02/17 17:40 Dose: 80 mg Point of Care Test Results: 05/02/17 16:44 POC Sodium 135 POC Potassium 4.9 POC Chloride 100 POC BUN 60 H POC Creatinine 1.2 H POC Glucose 215 H General Initial Vital Signs: Initial Vital Signs Temperature (C) 36.8 C 05/02/17 16:35 Heart Rate 122 H 05/02/17 16:35 Respiratory Rate 18 05/02/17 16:35 Blood Pressure 69/46 L 05/02/17 16:35 O2 Sat (%) 96 05/02/17 16:35 O2 Delivery Mode Nasal Cannula O2 (L/minute) 2 Allergies/Adverse Reactions: oxycodone Allergy (Mild, Verified 05/02/17 17:01) Itching Home Medications: Medication Instructions Recorded Atorvastatin Calcium [Lipitor 20 20 mg PO HS 02/13/17 mg (*)] Warfarin Sodium [Coumadin 3MG (*)] 4.5 mg PO TUFR@16 02/13/17 Aspirin EC [Aspirin EC 81 mg (*)] 81 mg PO HS 02/17/17 Ascorbic Acid [Vitamin C 500 mg 1,000 mg PO HS 02/24/17 (*)] Cholecalciferol Vit D3 [Vitamin D3 1,000 units PO HS 02/24/17 (*)] Folic Acid [Folic Acid 1 MG (*)] 1 mg PO HS 02/24/17 Herbals/Supplements -Info Only 1 ea PO AD 02/24/17 Multivitamins [Multivitamin (*)] 1 tab PO HS 02/24/17 Tiotropium Inhaler [Spiriva 1 puffs IH DAILY 02/24/17 Inhaler (RX)] Warfarin Sodium [Coumadin 3MG (*)] 3 mg PO SUMOWETHSA@16 02/24/17 Gabapentin [Neurontin 300 MG (*)] 300 mg PO HS 05/02/17 Loratadine [Claritin 10 mg] 10 mg PO DAILY 05/02/17 Departure - Departure Disposition: [facility] Inpatient Acute Clinical Impression: Hemorrhagic shock GI bleed Qualifiers: GI bleed type/associated pathology: unspecified gastrointestinal hemorrhage type Qualified Code(s): K92.2 - Gastrointestinal hemorrhage, unspecified Condition: Serious Report Scribed for: Kasey Holguin Report Scribed by: Edie Holguin Date of Report: 05/02/17 Time of Report: 16:55 Physician Review and Approval Statement: Portions of this note were transcribed by a lpn medical assistant. I personally performed a history, physical exam, medical decision making, and confirmed accuracy of information the transcribed note.
[2017-05-02 17:01] LABS: PLATELET COUNT 130 10^3/uL (150-400)
--- NOTE | 2017-05-02 17:12 | CPEKG ---
Heart Rate: 109 RR Interval: 550 P-R Interval: 128 QRSD Interval: 72 QT Interval: 368 QTC Interval: 496 P Mcgrann: 58 QRS Mcgrann: 62 T Wave Mcgrann: 66 EKG Severity - BORDERLINE ECG - EKG Impression: SINUS TACHYCARDIA EKG Impression: BORDERLINE PROLONGED QT INTERVAL Electronically Signed By: Kasey Holguin 02-May-2017 23:02:09
[2017-05-02 17:28] LABS: INR 2.92 (0.83-1.16); PROTIME(PATIENT) 30.4 SEC (12.0-15.0)
[2017-05-02] MEDS ORDERED: HUMAN PROTHROMBIN COMPLX(PCC) 500 UNIT/20 ML VIAL IV ONE ×2 (17:33→17:42)
[2017-05-02] MEDS ORDERED: ACETAMINOPHEN 650 MG SUPP PR PRN (17:33)
[2017-05-02] MEDS ORDERED: PANTOPRAZOLE SODIUM 40 MG VIAL IVP ONE (17:35)
[2017-05-02] MEDS ORDERED: PANTOPRAZOLE SODIUM 40 MG VIAL ONE (17:38)
[2017-05-02] MEDS ORDERED: HUMAN PROTHROMBIN COMPLX(PCC) 1,500 UNIT/60 ML VIAL IV ONE (17:42)
[2017-05-02] MEDS ORDERED: NS 1,000 ML IV SCH (17:45)
[2017-05-02] MEDS: ONDANSETRON 4 MG/2 ML VIAL IVP PRN (17:54)
[2017-05-02] MEDS ORDERED: PROMETHAZINE HCL 25 MG/ML INJ IVP PRN (19:15)
--- NOTE | 2017-05-02 19:27 | GHP ---
[f rep st] HISTORY AND PHYSICAL DATE OF ADMISSION: 05/02/2017 CHIEF COMPLAINT: Abdominal pain and black vomit. HISTORY OF PRESENT ILLNESS: A 71-year-old female with a history of metastatic adenocarcinoma of the lung, actively receiving treatment from Oncology on full-dose anticoagulation for a recent diagnosed pulmonary embolism, who presents with complaints of approximately 48 hours of epigastric discomfort t hat she describes initially as burning, then more severe continuing to localize in her upper abdomen. The patient then developed black tarry output from her ostomy and emesis that was noted to be black and coffee-ground based. The patient says the abdominal pain has not subsided. The nausea has pers isted and then she started developing severe fatigue, dizziness, lightheadedness, and therefore prese nted to the emergency department for evaluation. In the ED, she denies chest pain, remains persisten tly quite dizzy, fatigued, continues to have epigastric discomfort which is moderate to severe. The patient denies any shortness of breath. Denies any myalgias. Denies any history of reflux, ulcer di sease, or GI bleeds in the past. The patient has an ostomy from perforated diverticulitis that was p laced 4 years ago and she has been quite stable on this. The patient actively denies any subjective fevers or chills. Denies any dysuria, hematuria. PAST MEDICAL HISTORY: 1. Metastatic adenocarcinoma of the lung, actively receiving treatment. 2. Perforated diverticulitis status post colostomy. 3. Pulmonary embolism on full-dose anticoagulation. 4. Hyperlipidemia. SOCIAL HISTORY: Negative for tobacco, alcohol, or illicit drugs. FAMILY HISTORY: Negative for adenocarcinoma of the lung. ADVANCED DIRECTIVES: Patient is full cor, full tube. Her would be her medical decision make r. REVIEW OF SYSTEMS: A 10-point review of systems is negative with the exception of that reported in t he HPI. PHYSICAL EXAMINATION: VITAL SIGNS: Blood pressure 63/46 at presentation, heart rate 122, respirator y rate 18, 96% on room air, 36.8. GENERAL: This is a very pale-appearing middle-aged female in mild distress. HEENT: Notable for blood on her lips, which is dried, and dry mucous membranes. Eye exa m is negative for any icterus. CARDIAC: Patient is regular rate and rhythm. PULMONARY: She is campbell ar to auscultation bilaterally. GASTROINTESTINAL: The patient has diminished bowel sounds, is tende r to palpation in the epigastrium. No rebound or guarding. MUSCULOSKELETAL: Negative for any lower extremity edema. SKIN: Negative for any rashes. NEUROLOGIC: She is lethargic, but oriented x3. PSYCHIATRIC: She is pleasant and cooperative on interview and examination. DATA: Hemoglobin at presentation is 7.5, down from 13 a month ago. Platelet count is 130. White co unt is 2.9. INR is 2.92. Creatinine 1.1. Baseline appeared 0.8, blood glucose 192. Troponin less than 0.012. Chest x-ray which I personally reviewed and interpreted, shows no acute infiltrates or e alicia. ASSESSMENT AND PLAN: This is a 71-year-old female on full-dose anticoagulation for pulmonary embolus presenting with weakness and melena. 1. Acute upper gastrointestinal bleed. Patient had coffee-ground emesis and pain in the epigastrium , certainly concerning for a gastrointestinal source. She has dropped her counts considerably with h emoglobin of 13 one month ago and now 7 at presentation with associated hypotension and tachycardia. Will admit the patient to the intensive care unit. She is actively receiving blood transfusion curr ently. Will continue a fluid support. Reverse her coagulopathy from her Coumadin with FFP. Initiat e high-dose proton pump inhibitor and consult Gastroenterology for emergent EGD. 2. Hypotension. The patient is presenting with blood pressures well below her normal baselines. Wi ll aggressively resuscitate with blood products and IV fluids. Admit to the ICU for close monitoring and consult Gastroenterology for emergent EGD. 3. Acute blood loss anemia secondary to gastrointestinal bleed. The patient is receiving a blood tr ansfusion currently. Will continue to monitor her counts closely and transfuse where appropriate. 4. History of pulmonary embolus. The patient is certainly having a complication related to full-dos e anticoagulation. Will need to reverse her for safety currently and discuss potentially even inferi or vena cava filter with her care team when she is stabilized. 5. Metastatic adenocarcinoma of lung. The patient is actively receiving treatment from [facility]. Will let the oncologist know the patient is being admitted so they can follow cristobal edwards with. 6. Acute kidney injury. Patient's creatinine is up. Will aggressively fluid resuscitate with both blood and intravenous fluids. Recheck in the morning. Prophylaxis contraindicated in the setting of acute gastrointestinal bleed. DIET: N.p.o. for EGD. DISPOSITION: I expect greater than 2 midnights as patient is presenting critically ill with unstable vital signs related to acute GI bleed. I have discussed the case with the emergency room physician. Patient will be triaged to the ICU for close monitoring and care. /[id number]/MODL
[2017-05-02] MEDS: PANTOPRAZOLE SODIUM 40 MG VIAL IVP SCH ×2 (19:34→22:58)
[2017-05-02] MEDS: HYDROmorphONE/DILAUDID 2 MG/ML INJ IVP PRN (22:57)
[2017-05-03 05:14] LABS: PLATELET COUNT 76 10^3/uL (150-400)
[2017-05-03] MEDS: PANTOPRAZOLE SODIUM 40 MG VIAL IVP SCH ×2 (05:49→12:39)
--- NOTE | 2017-05-03 06:27 | PDMN ---
Medical Necessity Medical necessity: C/M review: est. > 2 MN LOS for eval and TX of acute upper GI bleed, acute blood loss anemia, hypotenson requiring IV Prothrombin, IV Vitamin K, 2 units PRBCs thus far, planned GI consult, Oncology consult, EGD, ongoing IV Protonix, IV Zofran, IV Dilaudid, IV fluids, pulse oximetry, supplemental O2, comorbid history of recently diagnosed PE on chronic Coumadin, metastatic lung cancer actively receiving treatment, perforated diverticulitis S /P colectomy, hyperlipidemia per H/P.
--- NOTE | 2017-05-03 09:35 | HOSPPROG ---
Hospitalist Progress Note Assessment/Plan: #Acute GIB: Coumadin was increased to 4.5mg daily this week (normally 3mg most days). Also on ASA. No h/o GIB -reversed last night with Kcentra, Vit K. INR 1.09 today -Dr. Centeno to scope today, IV PPI #Metastatic adenocarcinoma lung cancer: last chemo Thursday. Paclitaxel, Carboplatin #Pancytopenia: due to chemo #Pulmonary embolism: will need IVC filter if AC held for several days. U/S LEs #h/o diverticulitis and perf: s/p colostomy #Acute blood loss anemia: due to GIB. Responded to 2 units RBCs #Acute encephalopathy: due to hemorrhage shock. Resolved #Hypotension: resolved with blood/fluids #Tachycardia: due to blood loss. Improved. Cont gentle IVFs #Diet: NPO #Disp: warrants ICU admission for emergent EGD Subjective: no dizziness. Objective: Vital Signs Temp Pulse Resp BP Pulse Ox 36.7 C 88 14 126/49 H 100 05/03/17 08:00 05/03/17 08:00 05/03/17 08:00 05/03/17 08:00 05/03/17 08:00 Laboratory Results 05/03/17 05:00 05/03/17 05:00 05/02/17 05/03/17 05/04/17 04:59 05:59 05:59 Intake Total Output Total Balance PT 30.4 SEC (12.0-15.0) H 05/02/17 16:50 INR 2.92 (0.83-1.16) H 05/02/17 16:50 - Time Spent With Patient Time Spent with Patient: greater than 35 minutes Time Spent with Patient: Greater than 35 minutes spent on this patients care, greater than 50% of time spent counseling, educating, and coordinating care regarding the above mentioned plan. - Physical Exam Constitutional: chronically ill appearing Eyes: PERRL, pale conjunctiva Ears, Nose, Mouth, Throat: moist mucous membranes, hearing normal Cardiovascular: regular rate and rhythym, no murmur, rub, or gallop Respiratory: rhonchi Gastrointestinal: normoactive bowel sounds, tenderness (epigastric), other ( ostomy with melanic stool) Genitourinary: no bladder fullness Skin: warm Musculoskeletal: full muscle strength Neurologic: AAOx3, CN II-XII Intact Psychiatric: interacting appropriately ICD10 Worksheet Patient Problems: Problems Problem Status Onset GI bleed Acute Hemorrhagic shock Acute Pulmonary embolism Acute
[2017-05-03 09:56] LABS: INR 1.02 (0.83-1.16); PROTIME(PATIENT) 13.6 SEC (12.0-15.0)
--- NOTE | 2017-05-03 11:34 | GCON ---
[f rep st] CONSULTATION REFERRING PHYSICIAN: Seda Locke MD CHIEF COMPLAINT: A 71-year-old woman with hematemesis and melena. HISTORY OF PRESENT ILLNESS: This is a very pleasant 71-year-old woman, who is referred by Dr. Fantasma garza, for consultation regarding hematemesis, melena, and anemia. She has a history of metastatic lung cancer, adenocarcinoma. She is being treated by Oncology and has been on full-dose anticoagulation f or a history of recent pulmonary embolus in February of this year. She presented to the hospital with complaints of 48-hour symptoms of epigastric pain described initially as burning and then localized to the upper abdomen. The patient did develop black and tarry stool from her colostomy output. She also had episodes of hematemesis described as coffee-ground material and black. She has no prior his tory of ulcer disease or prior history of GI bleeding. Her INR was elevated at 2.9 in the emergency department. She has been on Coumadin. The nausea persisted and complained of fatigue, feeling unwel l with dizziness and lightheadedness. She presented to the emergency department. She had no chest p ain or discomfort. She was found to be profoundly anemic, was transfused packed red blood cells. Ad mitted to the ICU for observation, started on IV Protonix. Asked to see patient for further evaluati on. PAST MEDICAL HISTORY: Remarkable for metastatic adenocarcinoma of the lung, perforated diverticulosi s, status post colostomy, pulmonary embolism on anticoagulation, Coumadin, hyperlipidemia. SOCIAL HISTORY: Nonsmoker, nondrinker. FAMILY HISTORY: Negative as it pertains to chief complaint. MEDICATIONS: In the hospital include acetaminophen, Dilaudid, Zofran, pantoprazole, Phenergan. Medi cations prior to admission included warfarin, atorvastatin, aspirin, herbal supplements, vitamin D, v itamin C, multivitamins, folic acid, Spiriva, gabapentin, and Claritin. ALLERGIES: Codeine. REVIEW OF SYSTEMS: Negative for 10 systems other than mentioned in HPI. PHYSICAL EXAM: GENERAL: A very pleasant woman lying in bed with alopecia, in no acute distress. SHAR SIGNS: 93/80, pulse of 95, respiratory rate 19, 100% sat on 2 L nasal cannula. A very pleasant woman in no acute distress as described. HEENT: Alopecia. Normocephalic, atraumatic. EOMI. NECK: Supple. No cervical adenopathy. No thyromegaly. Mucous membranes moist. LUNGS: Clear. CARDIAC : Normal S1, S2 without murmur. ABDOMEN: Soft, benign. No hepatosplenomegaly. EXTREMITIES: With trace edema. No clubbing or cyanosis. SKIN: Warm, dry, intact. NEURO: Nonfocal. PSYCH: Alert and oriented x3 with normal affect. LABORATORY DATA: White count 1.88, hemoglobin 9.2, hematocrit 26.9, platelets 76. PT of 13.6, INR o f 1.02. Serum chemistries: Serum sodium 143, potassium 4.8, chloride 108, CO2 of 26, BUN 44, creati nine 0.8, glucose of 112. IMPRESSION: A very pleasant 71-year-old woman who is on anticoagulation with Coumadin and has a low platelet count. History of NSAID use. No history of being on a proton pump inhibitor. Suspect jose ent with underlying gastritis. Rule out peptic ulcer disease. RECOMMENDATIONS: N.p.o., serial H and H. Continue on IV Protonix. Proceed with urgent endoscopy. We will follow with you. /[id number]/MODL
--- NOTE | 2017-05-03 11:38 | PDANEPAE ---
ANE History of Present Illness EGD for GI bleed ANE Past Medical History - Cardiovascular History Hx Hypertension: No Hx Arrhythmias: No Hx Chest Pain: No Hx Coronary Artery / Peripheral Vascular Disease: Yes Hx CHF / Valvular Disease: No Hx Palpitations: No Cardiovascular History Comment: CHOLESTEROL , PE 02/24/17 - Pulmonary History Hx COPD: Yes Hx Asthma/Reactive Airway Disease: No Hx Recent Upper Respiratory Infection: No Hx Oxygen in Use at Home: No Hx Sleep Apnea: No Sleep Apnea Screening Result - Last Documented: Negative Pulmonary History Comment: SPIRIVA - Neurologic History Hx Cerebrovascular Accident: No Hx Seizures: No Hx Dementia: No - Endocrine History Hx Diabetes: No - Renal History Hx Renal Disorders: No Renal History Comment: 18MTHS AGO CREATINE 1.6, NOW LOWER - Liver History Hx Hepatic Disorders: No - Neurological & Psychiatric Hx Hx Neurological and Psychiatric Disorders: Yes Neurological / Psychiatric History Comment: neuropathy R/T surgery - Cancer History Hx Cancer: Yes - Congenital Disorder History Hx Congenital Disorders: No - GI History Hx Gastrointestinal Disorders: Yes Gastrointestinal History Comment: DIVERTICULITIS, COLOSTOMY - Other Health History Other Health History: none - Chronic Pain History Chronic Pain: No - Surgical History Prior Surgeries: RUPTURED COLON.RIGHT KNEE. BLOOD CLOT TO RIGHT FOOT. DEBRIDMENT OF RIGHT FOOT ANE Review of Systems Review of Systems: - Exercise capacity Exercise capacity: <4 METS ANE Patient History - Allergies Allergies/Adverse Reactions: oxycodone Allergy (Mild, Verified 05/02/17 17:01) Itching - Home Medications Home medications: home medication list seen and reviewed Home Medications: Atorvastatin Calcium [Lipitor 20 mg (*)] 20 mg PO HS 02/13/17 [Last Taken ] Warfarin Sodium [Coumadin 3MG (*)] 4.5 mg PO TUFR@16 02/13/17 [Last Taken ] Aspirin EC [Aspirin EC 81 mg (*)] 81 mg PO HS 02/17/17 [Last Taken 05/01/17] Ascorbic Acid [Vitamin C 500 mg (*)] 1,000 mg PO HS 02/24/17 [Last Taken ] Cholecalciferol Vit D3 [Vitamin D3 (*)] 1,000 units PO HS 02/24/17 [Last Taken 05/01/17] Folic Acid [Folic Acid 1 MG (*)] 1 mg PO HS 02/24/17 [Last Taken 05/01/17] Herbals/Supplements -Info Only 1 ea PO AD 02/24/17 [Last Taken 03/06/17] Multivitamins [Multivitamin (*)] 1 tab PO HS 02/24/17 [Last Taken 05/01/17] Tiotropium Inhaler [Spiriva Inhaler (RX)] 1 puffs IH DAILY 02/24/17 [Last Taken 05/02/17] Warfarin Sodium [Coumadin 3MG (*)] 3 mg PO SUMOWETHSA@16 02/24/17 [Last Taken 4.5mg qday since 04/27] Gabapentin [Neurontin 300 MG (*)] 300 mg PO HS 05/02/17 [Last Taken 05/01/17] Loratadine [Claritin 10 mg] 10 mg PO DAILY 05/02/17 [Last Taken 05/02/17] - NPO status NPO Status: no food or drink >8 hours NPO Since - Liquids (Date): 05/02/17 NPO Since - Liquids (Time): 00:00 NPO Since - Solids (Date): 05/02/17 NPO Since - Solids (Time): 00:00 - Anes Hx Anes Hx: no prior problems - Smoking Hx Smoking Status: Former smoker - Alcohol Use Alcohol Use: Sober - Family Anes Hx Family Anes Hx: none Family Hx Anesthesia Complications: NONE ANE Labs/Vital Signs - Labs Result Diagrams: 05/03/17 05:00 05/03/17 05:00 - Vital Signs Blood Pressure: 110/53 Heart Rate: 109 Respiratory Rate: 17 O2 Sat (%): 99 Height: 157.48 cm Weight: 77.111 kg ANE Physical Exam - Airway Neck exam: FROM Mallampati Score: Class 2 Mouth exam: dentures (Upper dentures) - Pulmonary Pulmonary: no respiratory distress - Cardiovascular Cardiovascular: regular rate and rhythym, tachycardia - ASA Status ASA Status: III ANE Anesthesia Plan Anesthesia Plan: GA with mask Total IV Anesthesia: Yes Urgent/Emergent Case: Sophiesevero garcia completed preop but documented later for safe timely pt care
[2017-05-03] MEDS ORDERED: PROPOFOL/EMULSION 500 MG/50 ML BOTTLE IV ONE (11:55)
[2017-05-03] MEDS ORDERED: LIDOCAINE 2% 5 ML SDV ONE (12:07)
[2017-05-03] MEDS ORDERED: PANTOPRAZOLE SODIUM 40 MG TAB PO SCH (12:15)
--- NOTE | 2017-05-03 12:17 | GIREPORT ---
[facility] - Endoscopy Department Patient Name: Sarah Winston Procedure Date: 05/03/2017 11:57 AM Patient Type: Inpatient Attending MD/ ER Physician: Darrius Centeno MD Procedure: Upper GI endoscopy Indications: Acute post hemorrhagic anemia, Coffee-ground emesis, Hematemesis, (in t he setting of anticoagulation/warfarin) Providers: Darrius Centeno MD Medicines: Sedation Required Anesthesia Staff Assistance Complications: No immediate complications. Description of Procedure: After obtaining informed consent, the endoscope was passed under direct vision. Throughout the procedure, the patient's blood pressure, pulse, and oxygen saturations were monitored continuously. The Endoscope was intro duced through the mouth, and advanced to the second part of duodenum. The [facility] er GI endoscopy was accomplished without difficulty. The patient tolerated th e procedure well. Findings: The examined esophagus was normal. Hematin (altered blood/pkulkd-ayzfih-emnl material) was found in the en tire examined stomach. One non-bleeding cratered gastric ulcer with pigmented material was fou nd at the pylorus. The lesion was 10 mm in largest dimension. The gastric antrum was normal. Biopsies were taken with a cold forceps for histology. The examined duodenum was normal. Estimated Blood Loss: Estimated blood loss: none. Post Op Diagnosis: - Normal esophagus. - Hematin (altered blood/ezjkff-cjlrpl-xhqd material) in the entire sto mach. - Non-bleeding gastric ulcer with pigmented material. - Normal antrum. Biopsied. - Normal examined duodenum. Recommendation: - Await pathology results. - Clear liquid diet - advance as tolerated to resume regular diet. - Use Protonix (pantoprazole) 40 mg PO BID. - Would avoid anticoagulation if possible for several days to a week. - Thank you for allowing me to participate in the care of your patient. Attending Participation: I personally performed the entire procedure. Darrius Centeno MD Darrius Centeno MD 05/03/2017 12:16:53 PM This report has been signed electronicallyStjorge luis Centeno MD Number of Addenda: 0 Note Initiated On: 05/03/2017 11:57 AM [email or web address]
[2017-05-03] MEDS ORDERED: NALOXONE HCL 0.4 MG/ML INJ IVP PRN (12:29)
[2017-05-03] MEDS ORDERED: Herbals/Supplements -Info Only PO SCH (12:30)
[2017-05-03] MEDS: TIOTROPIUM INHALER 18 MCG/DOSE 5 DOSE/MDI IH SCH (12:41)
--- NOTE | 2017-05-03 13:53 | POSTANESTH ---
Post Anesthetic Evaluation Cardiovascular Status: Similar to Pre-Op Cond Respiratory Status: Similar to Pre-op Cond. Level of Consciousness/Mental Status: Can Participate in Eval Pain Control: Adequate, Prn Tx Ordered Nausea/Vomiting Control: Adequate, Prn Tx Ordered Complications Possibly Related to Anesthesia: None Noted
[2017-05-03] MEDS: ONDANSETRON 4 MG/2 ML VIAL IVP PRN (16:24)
[2017-05-03] MEDS: HYDROmorphONE/DILAUDID 2 MG/ML INJ IVP PRN ×2 (16:45→20:48)
--- NOTE | 2017-05-03 16:45 | GCON ---
[f rep st] CONSULTATION ONCOLOGY CONSULTATION. DATE OF CONSULTATION: 05/03/2017 OUTPATIENT ONCOLOGIST: Dr. Aayush Okeefe. REQUESTING PHYSICIAN: Dr. Seda Locke. REASON FOR CONSULTATION: Lung cancer and GI bleed. HISTORY OF ILLNESS: The patient is a 71-year-old woman with a history of stage IIIB non-small cell lung cancer. She presented in January 2017 with tachycardia , went to the emergency department. A CT angiogram revealed multiple right- sided hilar and mediastinal nodes, including a right superior mediastinal mass and a right supraclavicular lymph node. That node was excised and showed a non- small cell lung cancer, which was negative for emergency medical technician/driver mutations or PDL1 expression. Given the bulky nature of her disease, it was not felt to be safe to treat her upfront with definitive radiation. Dr. Okeefe and Dr. Moore, opted for induction chemotherapy with carboplatin and Taxol, to reduce the size of the tumor and then consolidate it with radiation therapy. She has, so far, completed 3 cycles of chemotherapy, most recently on April 27, and is tolerating it well. The patient has been on Coumadin for 4 years, since she developed bilateral DVTs in the legs. She was off her Coumadin for about a week, when she had a lymph node biopsy in January and had bilateral pulmonary emboli in that setting. On the day of admission, she called me from home to report lethargy, weakness, hematemesis, and tarry output in her colostomy bag. I advised her to go to the emergency department, where she found to be anemic and hypotensive. She was resuscitated with red blood cells and fluids, and given FFP and vitamin K to reverse her Coumadin. She is currently feeling much better this morning, is hemodynamically stable. PAST MEDICAL HISTORY: 1. Non-small cell lung cancer, stage IIIB, as described above. 2. History of DVT and pulmonary embolism. 3. History of perforated diverticulitis in 2013, now with a permanent colostomy. CURRENT MEDICATIONS: Protonix 40 mg IV q.6. ALLERGIES: Oxycodone. FAMILY HISTORY: Noncontributory. SOCIAL HISTORY: She is a nonsmoker, nondrinker. Lives with her . REVIEW OF SYSTEMS: Aside from the pertinent positives, a 14-point Review of Systems is negative. EXAMINATION: VITAL SIGNS: Temperature 36.7, blood pressure 136/49, heart rate 80, oxygen saturation 100% on 2 L. GENERAL: She was a chronically ill-appearing woman, though in no acute distress. HEENT: Sclerae anicteric. Oropharynx was clear. NECK: Supple without lymphadenopathy. LUNGS: Clear to auscultation bilaterally. CARDIAC: Regular rate and rhythm. No murmurs, gallops, rubs. ABDOMEN: Normal bowel sounds. Nontender. Nondistended. EXTREMITIES: 1+ edema, somewhat worse on the left than the right. This is chronic. LABORATORY DATA: White cells 1.88, hemoglobin 9.2, platelets of 76. Sodium 137 , potassium 4.5, chloride of 99, bicarb of 23, BUN 65, creatinine 1.1, which has gone down to 0.8 after hydration. Glucose 192. Troponin negative. IMPRESSION: This is a 71-year-old woman being treated with carboplatin and Taxol chemotherapy for stage IIIB lung cancer. She is on Coumadin for history of DVT and pulmonary embolism. She now presents with upper gastrointestinal bleed of unknown source. She is currently hemodynamically stable, and her Coumadin has been reversed. Endoscopy is planned for later today. This is unlikely to be a direct effect of her chemotherapy or cancer. The endoscopy will be revealing in terms of what the underlying cause is. Based on the results of the endoscopy, we will have to decide how long she needs to remain off anticoagulation. I would favor the temporary placement of an inferior vena cava filter if it needs to be more than a couple of days, given her propensity for thrombosis that was demonstrated in February when she was off her Coumadin for a brief period of time. The filter could be removed at a future date when she can safely go back on anticoagulation. We will continue to follow the patient with you closely while she is in the hospital. /[id number]/MODL MTDD
--- NOTE | 2017-05-03 16:46 | GCON ---
[f rep st] CONSULTATION PULMONARY CRITICAL CARE CONSULTATION. DATE OF CONSULTATION: 05/03/2017 REASON FOR CONSULTATION: Upper GI bleed, history of adenocarcinoma of the lung, previous pulmonary e mbolic disease. HISTORY: Patient is a very pleasant 71-year-old who has a history of a colostomy. Yesterday, she no imtiaz melenic stool in her colostomy bag. She also had some emesis that was coffee ground. She was on anticoagulation with Coumadin secondary to previous thromboembolic disease. INR on admission was 2. 92. Coumadin had recently been increased slightly. In any case, Gastroenterology was consulted this morning. Upper endoscopy was done. A nonbleeding gastric ulcer was found. Biopsies were obtained. Protonix twice daily and a clear liquid diet was recommended. Avoiding anticoagulation for several days was also recommended. PAST MEDICAL HISTORY: Remarkable for colostomy secondary to diverticulitis, I believe, 4 years ago, recently diagnosed metastatic adenocarcinoma of the lung, receiving chemotherapy, COPD, history of de ep venous thrombosis and pulmonary embolism, and hyperlipidemia. MEDICATIONS ON ADMISSION: Included warfarin, gabapentin, Lipitor, aspirin, and Spiriva. SOCIAL HISTORY: The patient is , lives in [place]. She smoked cigarettes in the past but q uit smoking 7 years ago. She started smoking in her teens. She does have a history of COPD. There is no history of significant alcohol abuse. FAMILY HISTORY: Negative/noncontributory. REVIEW OF SYSTEMS: Denies heart disease. Ten-point review of systems is otherwise negative, except as outlined in the HPI. She has had no increased swelling of her lower extremities. Chronically, he r left lower extremity is slightly enlarged compared to the right. She has no chest pain, no signifi cant shortness of breath, or dyspnea on exertion. Her last chemotherapy was 6 days ago with carbopla tin and paclitaxel. PHYSICAL EXAMINATION: GENERAL: A very pleasant woman who is in no acute distress. She has chemothe rapy-induced alopecia. VITAL SIGNS: Blood pressure is approximately 130/50, heart rate 85 with sinu s rhythm on the monitor. Respiratory rate is 20. On 2 L, saturations were 100%; she is currently of f oxygen. She is afebrile. HEENT: Unremarkable for lymphadenopathy or thyromegaly. There is no ju gular venous distention. Mucous membranes are moist. CHEST: Clear bilaterally. Excursions and mary ath sounds are somewhat diminished. HEART: Regular in rate and rhythm to tachycardic. There is a s oft systolic murmur. No gallop. ABDOMEN: Soft and nontender. Bowel sounds are present. A colosto my is in place. There is no Wen catheter. EXTREMITIES: Trace edema bilaterally. No cords, no ten derness. NEUROLOGIC: Intact. LABORATORY: White blood cell count is 1900, hematocrit 26.9, after 2 units of blood. Initial hemato crit was 22 with a hemoglobin of 7.5. Platelets are currently 76,000, having fallen from 130,000 on admission yesterday. INR today is 1.0. Basic metabolic panel is within normal limits with the excep tion of elevated BUN of 44. Troponins are negative. ASSESSMENT: 1. Upper gastrointestinal bleed secondary to a gastric ulcer. She is no longer bleeding. Coumadin certainly contributed to the severity of her bleed. This was stopped, reversed, and INR is now andi l. GI is recommending that we do not restart anticoagulation for several days. I agree with this re commendation. If holding anticoagulation for much longer is needed, then a filter needs to be consid ered. Please see comments below. 2. History of deep venous thrombosis/pulmonary embolic disease. She was on full-dose anticoagulatio n prior to admission, with an INR on the high side. This certainly did contribute to the severity of her blood loss but was not the cause of it. Coumadin is being held currently, and INR is normal. H olding the Coumadin for several days is appropriate. A lower extremity venous Doppler ultrasound sachin l be done today to see if she is at risk for further pulmonary embolic disease. If so, a filter will be placed. If anticoagulation can be started in 2-3 days, then I would not recommend a filter. Pro phylactic anticoagulation could be considered earlier. 3. History of metastatic adenocarcinoma of the lung. She is on chemotherapy. Pancytopenia is prese nt, secondary to her chemotherapy. CBC will be followed. 4. History of tobacco abuse in the past, mild chronic obstructive pulmonary disease. She is on Spir joey. P.r.n. albuterol by metered-dose inhaler can be given if needed. 5. Status post colostomy. PLAN AND RECOMMENDATIONS: The patient will be kept in the intensive care unit. Hemoglobin and hemat ocrit will be followed this afternoon, CBC in the morning. Metabolic panels will also be followed. A lower extremity venous Doppler ultrasound will be obtained today. Further decisions regarding anti coagulation will be made after the results of that study are known. Please see the comments above. Further plans and recommendations will be made, based on her progress over the next 12-24 hours. /[id number]/MODL
--- NOTE | 2017-05-03 18:01 | ASMTCMCOM ---
CM Note CM Note Notes: 71yr old female admitted for Upper GIB, Abdominal pain, Hypotension, Hemorrhagic shock, Met Lung CA. She has a hx of anticoagulation after pulm embolism, perf DVT S/P colostomy, HDL. Patient lives with her and presently in tx for her CA. CM to follow for discharge needs. Date Signed: 05/03/2017 09:51 AM Electronically Signed By:Nina Giron LCSW
[2017-05-03] MEDS: FOLIC ACID 1 MG TAB PO SCH (20:04)
[2017-05-03] MEDS: ASCORBIC ACID 500 MG TAB PO SCH (20:05)
[2017-05-03] MEDS: CHOLECALCIFEROL VIT D3 1,000 UNITS TAB PO SCH (20:05)
[2017-05-03] MEDS: PANTOPRAZOLE SODIUM 40 MG TAB PO SCH (20:05)
[2017-05-03] MEDS: ATORVASTATIN CALCIUM 20 MG TAB PO SCH (20:05)
[2017-05-03] MEDS: GABAPENTIN 300 MG CAP PO SCH (20:05)
[2017-05-03] MEDS: MULTIVITAMINS 1 EACH TAB PO SCH (20:05)
[2017-05-03] MEDS: ASPIRIN EC 81 MG TAB PO SCH (20:27)
[2017-05-04] MEDS: TIOTROPIUM INHALER 18 MCG/DOSE 5 DOSE/MDI IH SCH (07:57)
[2017-05-04] MEDS: CETIRIZINE 10 MG TAB PO SCH (07:58)
[2017-05-04] MEDS: PANTOPRAZOLE SODIUM 40 MG TAB PO SCH (08:28)
[2017-05-04] MEDS ORDERED: NON-FORMULARY NEW DRUG (Loratadine [Claritin 10 Mg] 10 MG) PO SCH (09:00)
[2017-05-04] MEDS ORDERED: NS 1,000 ML IV SCH (09:15)
--- NOTE | 2017-05-04 09:55 | SOAPPROG ---
[facility] Progress Note Assessment/Plan: Assessment: 1. NSCLC, stage IIIB, s/p 3 cycles chemo (carbo/taxol) 2. Gi bleed from gastric ulcer 3. History of DVT/PE u/s shows likely old thrombus in L leg. What is more relevant to her risk of thrombosis is the presence of active cancer and the fact that she had a PE in February when she was off anticoagulation for a brief period of time. Either starting her on low dose lovenox now or placing a short-time IVC filter would be options. I would favor low dose lovenox as it is less invasive. Plan: - will d/w Mitesh Manriquez and Javi to reach a conclusion re: anticoagulation vs filter - can transfuse platelets if <30, given recent bleed (not needed today) - await path results from biopsy 05/04/17 09:52 Subjective: feeling very well today. Objective: exam; Gen NAD Lungs CTAB CV RRR no MGR Abd: +BS NT ND Ext: 2+ edema Vital Signs Temp Pulse Resp BP Pulse Ox 37.5 C 118 H 16 99/61 L 97 05/04/17 08:00 05/04/17 08:00 05/04/17 08:00 05/04/17 08:00 05/04/17 08:00 Laboratory Results 05/04/17 08:02 05/04/17 03:25 05/03/17 05/04/17 05/05/17 05:59 05:59 05:59 Intake Total 1000 Output Total 1925 Balance -925 PT 13.6 SEC (12.0-15.0) D 05/03/17 09:37 INR 1.02 (0.83-1.16) 05/03/17 09:37 ICD10 Worksheet Patient Problems: Problems Problem Status Onset GI bleed Acute Hemorrhagic shock Acute Pulmonary embolism Acute
--- NOTE | 2017-05-04 14:02 | SOAPPROG ---
SOAP Progress Note Assessment/Plan: Assessment: Upper GI Bleed, pyloric ulcer. No signs or symptoms of rebleeding. Patient off of anticoagulation. Patient is nervous about being off of anticoagulation. Had PE in February. There was discussion about placing a Bryant filter vs starting back on anti- coagulation. Patient is reluctant to have filter placed. If anticoagulation necessary would start but and shoot for low therapeutic range and keep on high does PPI at least for two week then PPI daily indefinitely. Plan: Diet as tolerated Keep on BID PPI for two weeks then daily indefinitely Ok to restart anti-coagulation but would try to aim for low therapeutic level. Will sign off, please call with further questions. 05/04/17 13:56 Subjective: CC: GI Bleed No signs or symptoms of rebleeding. Tolerating PO well but appetite/taste not great. Objective: Vital Signs Temp Pulse Resp BP Pulse Ox 37.2 C 100 16 95/61 L 98 05/04/17 11:09 05/04/17 11:09 05/04/17 11:09 05/04/17 11:09 05/04/17 11:09 Laboratory Results 05/04/17 13:20 05/04/17 03:25 05/03/17 05/04/17 05/05/17 05:59 05:59 05:59 Intake Total 1000 Output Total 1925 Balance -925 PT 13.6 SEC (12.0-15.0) D 05/03/17 09:37 INR 1.02 (0.83-1.16) 05/03/17 09:37 Generic Name Dose Route Start Last Admin Trade Name Freq PRN Reason Stop Dose Admin Acetaminophen 650 mg 05/02/17 17:33 Tylenol Rectal NM 10/29/17 17:32 Q4HRS PRN Pain, Mild/Fever,Can't Take PO Ascorbic Acid 1,000 mg 05/03/17 21:00 05/03/17 20:05 Vitamin C PO 10/30/17 20:59 1,000 mg HS AZALIA Administration Aspirin Buffered 81 mg 05/03/17 21:00 05/03/17 20:27 Aspirin Ec PO 10/30/17 20:59 Not Given HS AZALIA Atorvastatin Calcium 20 mg 05/03/17 21:00 05/03/17 20:05 Lipitor PO 10/30/17 20:59 20 mg HS AZALIA Administration Cetirizine HCl 10 mg 05/04/17 09:00 05/04/17 07:58 Zyrtec PO 10/31/17 08:59 10 mg DAILY AZALIA Administration Cholecalciferol 1,000 units 05/03/17 21:00 05/03/17 20:05 Vitamin D PO 10/30/17 20:59 1,000 units HS AZALIA Administration Folic Acid 1 mg 05/03/17 21:00 05/03/17 20:04 Folic Acid PO 10/30/17 20:59 1 mg HS AZALIA Administration Gabapentin 300 mg 05/03/17 21:00 05/03/17 20:05 Neurontin PO 10/30/17 20:59 300 mg HS AZALIA Administration Hydromorphone HCl 0.5 - 1 mg 05/02/17 22:50 05/03/17 20:48 Dilaudid IVP 05/12/17 22:49 1 mg Q4HRS PRN Administration Pain, Severe Sodium Chloride 1,000 mls @ 100 mls/hr 05/02/17 17:45 05/04/17 13:27 Ns IV 10/29/17 17:44 1,000 mls CONT AZALIA Administration Sodium Chloride 1,000 mls @ 100 mls/hr 05/04/17 09:15 Ns IV 10/31/17 09:14 CONT AZALIA Multivitamins 1 each 05/03/17 21:00 05/03/17 20:05 Tab-A-Nakul PO 10/30/17 20:59 1 each HS AZALIA Administration Ondansetron HCl 4 mg 05/02/17 17:33 05/03/17 16:24 Zofran IVP 10/29/17 17:32 4 mg Q4HRS PRN Administration Nausea/Vomiting, Can't Take PO Pantoprazole Sodium 40 mg 05/03/17 21:00 05/04/17 08:28 Protonix PO 10/30/17 20:59 40 mg BID AZALIA Administration Promethazine HCl 25 mg 05/02/17 19:15 05/02/17 19:20 Phenergan IVP 10/29/17 19:14 25 mg Q6HRS PRN Administration Nausea/Vomiting, Can't Take PO Tiotropium [place] 18 mcg 05/03/17 12:15 05/04/17 07:57 Spiriva Handihaler 10/30/17 12:14 1 puffs DAILY AZALIA Administration Discontinued Medications Generic Name Dose Route Start Last Admin Trade Name Jonh PRN Reason Stop Dose Admin Sodium Chloride 1,000 mls @ 0 mls/hr 05/02/17 16:43 05/02/17 17:00 Ns IV 05/02/17 16:44 1,000 mls ONCE ONE Administration Protocol Wide Open Phytonadione 10 mg/ Sodium 51 mls @ 102 mls/hr 05/02/17 16:43 05/02/17 17:54 Chloride IV 05/02/17 17:12 51 mls ONCE ONE Administration Prothrombin Complex Concent (Human) 500 unit in 20 mls @ 0 mls/hr 05/02/17 17: 33 05/02/17 18:11 Kcentra IV 05/02/17 17:34 Not Given ONCE ONE Protocol Per Protocol Prothrombin Complex Concent (Human) 1,500 unit in 60 mls @ 0 mls/hr 05/02/17 17:42 05/02/17 18:17 Kcentra IV 05/02/17 17:43 60 mls ONCE ONE Administration Protocol Per Protocol Lidocaine HCl Confirm 05/03/17 12:07 Xylocaine-Mpf 2% Vial Administered 05/03/17 12:08 Dose 5 ml .ROUTE .STK-MED ONE Miscellaneous Medication 1 each 05/03/17 12:30 Herbals/Supplements -Info Only PO 10/30/17 12:29 AD AZALIA Naloxone HCl 0.1 mg 05/03/17 12:29 Narcan IVP 05/03/17 13:29 PRN PRN PACU Resp Rate <10/min Pantoprazole Sodium 80 mg 05/02/17 17:35 05/02/17 17:40 Protonix IVP 05/02/17 17:36 80 mg ONCE ONE Administration Pantoprazole Sodium 40 mg 05/02/17 17:45 05/03/17 12:39 Protonix IVP 10/29/17 17:44 40 mg Q6H AZALIA Administration Pantoprazole Sodium Confirm 05/02/17 17:38 Protonix Administered 05/02/17 17:39 Dose 80 mg .ROUTE .STK-MED ONE Propofol Confirm 05/03/17 11:55 Diprivan 10 Mg/Ml (Premix) Administered 05/03/17 11:56 Dose 500 mg IV .STK-MED ONE Physical Exam - Physical Exam General Appearance: alert, no apparent distress Respiratory: lungs clear Cardiac/Chest: regular rate, rhythm Abdomen: normal bowel sounds, non-tender, soft Skin: normal color, warm/dry Neuro/Psych: alert, normal mood/affect, oriented x 3 ICD10 Worksheet Patient Problems: Problems Problem Status Onset GI bleed Acute Hemorrhagic shock Acute Pulmonary embolism Acute
--- NOTE | 2017-05-04 15:19 | HOSPPROG ---
Hospitalist Progress Note Assessment/Plan: #Acute GIB: non-bleeding ulcer on EGD while on coumadin. Biopsies pending. H/H stable this morning, serial this evening, PPI BID #PEs/leg DVTs: had long conversation with she and . She is not in favor of IVC filter and scared off AC. We will start ppx AZALIA this evening and monitor serial H/H. If requires blood this gerson, will transfuse and hold heparin until tomorrow. She understands the risks of bleeding and wants to proceed with this plan #Metastatic adenocarcinoma lung cancer: last chemo Thursday. Paclitaxel, Carboplatin #Pancytopenia: due to chemo #BARBARA: due to hypotension. Resolved #h/o diverticulitis and perf: s/p colostomy #Acute blood loss anemia: due to GIB. Responded to 2 units RBCs #Acute encephalopathy: due to hemorrhage shock. Resolved #Hypotension: resolved with blood/fluids #Tachycardia: due to blood loss. Improved. Cont gentle IVFs #Diet: NPO #Disp: cont inpatient admission for serial H/H, possible transfusion. Discussed with Dr. Manriquez Time spent on visit: 45 min counseling pt and on AC vs. IVC filter Subjective: no abd pain or BMs today Objective: Vital Signs Temp Pulse Resp BP Pulse Ox 37.2 C 100 16 95/61 L 98 05/04/17 11:09 05/04/17 11:09 05/04/17 11:09 05/04/17 11:09 05/04/17 11:09 Laboratory Results 05/04/17 13:20 05/04/17 03:25 05/03/17 05/04/17 05/05/17 05:59 05:59 05:59 Intake Total 1000 Output Total 1925 Balance -925 PT 13.6 SEC (12.0-15.0) D 05/03/17 09:37 INR 1.02 (0.83-1.16) 05/03/17 09:37 - Time Spent With Patient Time Spent with Patient: greater than 35 minutes Time Spent with Patient: Greater than 35 minutes spent on this patients care, greater than 50% of time spent counseling, educating, and coordinating care regarding the above mentioned plan. - Physical Exam Constitutional: other (pale) Eyes: PERRL Ears, Nose, Mouth, Throat: moist mucous membranes, hearing normal Cardiovascular: tachycardia Respiratory: no respiratory distress Gastrointestinal: normoactive bowel sounds, soft, non-tender abdomen, distension (mild distension) Genitourinary: no bladder fullness Skin: warm Musculoskeletal: full muscle strength Neurologic: AAOx3 Psychiatric: interacting appropriately, not encephalopathic ICD10 Worksheet Patient Problems: Problems Problem Status Onset GI bleed Acute Hemorrhagic shock Acute Pulmonary embolism Acute
[2017-05-04] MEDS: PANTOPRAZOLE SODIUM 40 MG VIAL IVP SCH (20:29)
[2017-05-04] MEDS: FOLIC ACID 1 MG TAB PO SCH (20:42)
[2017-05-04] MEDS: MULTIVITAMINS 1 EACH TAB PO SCH (20:42)
[2017-05-04] MEDS: ATORVASTATIN CALCIUM 20 MG TAB PO SCH (20:42)
[2017-05-04] MEDS: CHOLECALCIFEROL VIT D3 1,000 UNITS TAB PO SCH (20:42)
[2017-05-04] MEDS: ASPIRIN EC 81 MG TAB PO SCH (20:42)
[2017-05-04] MEDS: ASCORBIC ACID 500 MG TAB PO SCH (20:42)
[2017-05-04] MEDS: GABAPENTIN 300 MG CAP PO SCH (20:42)
[2017-05-04] MEDS ORDERED: HEPARIN 5,000 UNIT/0.5 ML SYR SC SCH (22:00)
[2017-05-05 06:44] LABS: PLATELET COUNT 41 10^3/uL (150-400)
[2017-05-05 08:17] VITALS: BP 104/57; TEMP 97.9
[2017-05-05] MEDS: TIOTROPIUM INHALER 18 MCG/DOSE 5 DOSE/MDI IH SCH (08:35)
[2017-05-05 08:42] VITALS: PULSE 108; RESP 16; O2SAT 98
[2017-05-05] MEDS: PANTOPRAZOLE SODIUM 40 MG VIAL IVP SCH (09:00)
[2017-05-05] MEDS ORDERED: HEPARIN 5,000 UNIT/0.5 ML SYR SC SCH (09:00)
[2017-05-05] MEDS: CETIRIZINE 10 MG TAB PO SCH (09:31)
--- NOTE | 2017-05-05 11:05 | SOAPPROG ---
CHANTEL Progress Note Assessment/Plan: Assessment: 1. NSCLC, stage IIIB, s/p 3 cycles chemo (carbo/taxol) In [place] after 2 2. Gi bleed from gastric ulcer on PPId 3. Hypercoagualble state with history of DVT/PE u/s shows likely old thrombus in L leg. What is more relevant to her risk of thrombosis is the presence of active cancer and the fact that she had a PE in February when she was off anticoagulation for a brief period of time. Either starting her on low dose lovenox now or placing a short-time IVC filter would be options. I would favor low dose lovenox as it is less invasive. I agree. Once we are assured she is not bleeding with a stable Hgb and platelets we can send her home and recheck in 48 hours after discharge. Plan: Follow CBC and check gastric path 05/05/17 11:02 Subjective: Sarah feels good today. No active GI bleeding. No abdominal pain Objective: Vital Signs Temp Pulse Resp BP Pulse Ox 36.6 C 108 H 16 104/57 L 98 05/05/17 08:00 05/05/17 08:40 05/05/17 08:40 05/05/17 08:00 05/05/17 08:40 Laboratory Results 05/05/17 06:20 05/05/17 06:20 05/04/17 05/05/17 05/06/17 05:59 05:59 05:59 Intake Total 1000 Output Total 1925 Balance -925 PT 13.6 SEC (12.0-15.0) D 05/03/17 09:37 INR 1.02 (0.83-1.16) 05/03/17 09:37 Pale Alert oriented Lungs clear CVS reg Abd benign - Time Spent With Patient Time Spent With Patient: 30 min ICD10 Worksheet Patient Problems: Problems Problem Status Onset Pulmonary embolism Acute GI bleed Acute Hemorrhagic shock Acute
--- NOTE | 2017-05-05 12:06 | HOSPPROG ---
Hospitalist Progress Note Assessment/Plan: #Acute GIB: non-bleeding ulcer on EGD while on coumadin. Biopsies pending. 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 PE Feb 2017. She does not favor IVC. Will plan for low- dose anticoagulation once we know labs stable h #Metastatic adenocarcinoma lung cancer: last chemo Thursday. Paclitaxel, Carboplatin #Pancytopenia: due to chemo #BARBARA: due to hypotension. Resolved #h/o diverticulitis and perf: s/p colostomy #Acute blood loss anemia: due to GIB. Total of 3 units RBCs (last 05/04) #Acute encephalopathy: due to hemorrhage shock. Resolved #Hypotension: resolved with blood/fluids #Tachycardia: due to blood loss. Improved. Cont gentle IVFs #Diet: ADAT #Disp: cont inpatient admission for serial H/H, possible transfusion. Discussed with Dr. Manriquez Subjective: feels better after blood Objective: Vital Signs Temp Pulse Resp BP Pulse Ox 36.6 C 108 H 16 104/57 L 98 05/05/17 08:00 05/05/17 08:40 05/05/17 08:40 05/05/17 08:00 05/05/17 08:40 Laboratory Results 05/05/17 06:20 05/05/17 06:20 05/04/17 05/05/17 05/06/17 05:59 05:59 05:59 Intake Total 1000 Output Total 1925 Balance -925 PT 13.6 SEC (12.0-15.0) D 05/03/17 09:37 INR 1.02 (0.83-1.16) 05/03/17 09:37 - Physical Exam Constitutional: other (more color in cheeks) Eyes: PERRL Ears, Nose, Mouth, Throat: moist mucous membranes Cardiovascular: tachycardia Respiratory: no respiratory distress Gastrointestinal: normoactive bowel sounds, soft, non-tender abdomen Genitourinary: no bladder fullness Skin: warm Musculoskeletal: full muscle strength, other (port in place without signs of infection) Neurologic: AAOx3, CN II-XII Intact Psychiatric: interacting appropriately ICD10 Worksheet Patient Problems: Problems Problem Status Onset GI bleed Acute Hemorrhagic shock Acute Pulmonary embolism Acute
--- NOTE | 2017-05-05 13:56 | ASMTLACE ---
LACE Length of stay for Answers: 3 days current admission Acuity / Level of Answers: Yes Care: Did the patient have an inpatient admission? Comorbidities - select Answers: Any tumor (including all that apply lymphoma or leukemia) # of Emergency department Answers: 3-4 visits in the last 6 months Score: 11 Date Signed: 05/05/2017 01:55 PM Electronically Signed By:YAIR Norwood
--- NOTE | 2017-05-05 18:32 | GDS ---
[f rep st] DISCHARGE SUMMARY DISCHARGE DIAGNOSES: 1. Acute gastrointestinal bleed. 2. Nonbleeding ulcer. 3. Pulmonary embolism, February 2017. 4. Lower extremity deep vein thromboses. 5. Next metastatic adenocarcinoma, on chemotherapy. 6. Pancytopenia. 7. Acute kidney injury. 8. History of diverticulitis and perforation, now with colostomy. 9. Acute blood loss anemia. 10. Acute encephalopathy. 11. Hypertension. 12. Tachycardia. HISTORY OF PRESENT ILLNESS: A pleasant 71-year-old female with history of metastatic lung adenocarcinoma on active chemotherapy and on full-dose Coumadin for recent pulmonary embolism in February 2017, who presented with epigastric discomfort and black stools in her ostomy. She has had multiple episodes of coffee-grounds emesis along with severe fatigue, dizziness, and lightheadedness. In the ER, she was hypotensive at 63/46 and transferred to the ICU for further treatment. 1. Acute upper GI bleed: endoscopy showed a nonbleeding ulcer. Biopsies are pending. Continue twice daily PPI. She was transfused a total of 3 units RBCs. H and H are stable today at 8 and 22. 2. Recent pulmonary embolism March 14, 2017/lower extremity DVTs: Clots appear to be old in the leg, but concern would be this recent pulmonary embolism in the setting of malignancy. The patient is not in favor of an IVC filter. Had planned to start low-dose anticoagulation here but required an additional blood transfusion last night and is now thrombocytopenic to 41. She will follow up tomorrow for repeat CBC, with her primary oncologist, Dr. Okeefe, to determine when to start low-dose anticoagulation. 3. Hypotension, secondary to acute blood loss: This quickly resolved with blood transfusion and IV fluids. 4. Pancytopenia, again due to chemotherapy. Repeat BMP. 5. BARBARA secondary to hypotension, resolved. 6. History of diverticulitis, perforation and has a colostomy bag. 7. Acute encephalopathy: This is due to acute illness. She is oriented x3. DISPOSITION: Patient is stable for discharge home. FOLLOWUP: 1. CBC tomorrow. 2. Dr. Okeefe to determine when to restart anticoagulation. NEW MEDICATIONS: Protonix 40 mg b.i.d.. /[id number]/MODL MTDD
== END 2017-05-05 15:03 | disposition home or self-care (01) | DRG 377 ==
LOC: EDUNIT# → F2N 18:46 → F3E 05-04 10:42
PROVIDERS: ADMIT Hospitalist; ATTEND Internal Medicine
PROC: 0DB68ZX Excision of Stomach, Via Natural or Artificial Opening Endoscopic, Diagnostic (ICD-10-PCS; 2017-05-03)
PROC: 30283B1 Transfusion of Nonautologous 4-Factor Prothrombin Complex Concentrate into Vein, Percutaneous Approach (ICD-10-PCS; principal; 2017-05-03 11:30)
DX: K27.4 Chronic or unspecified peptic ulcer, site unspecified, with hemorrhage (principal); D61.810 Antineoplastic chemotherapy induced pancytopenia; D62 Acute posthemorrhagic anemia; N17.9 Acute kidney failure, unspecified; G93.40 Encephalopathy, unspecified; I95.9 Hypotension, unspecified; C34.90 Malignant neoplasm of unspecified part of unspecified bronchus or lung; I82.5Z1 Chronic embolism and thrombosis of unspecified deep veins of right distal lower extremity; J44.9 Chronic obstructive pulmonary disease, unspecified; I10 Essential (primary) hypertension; E78.5 Hyperlipidemia, unspecified; Z87.891 Personal history of nicotine dependence; Z79.01 Long term (current) use of anticoagulants; Z93.3 Colostomy status; Z86.711 Personal history of pulmonary embolism
CPT/HCPCS: 82947-QW; C9132; J1170; J1642; J2405; J2550; J2704; J3430; P9016

== ENCOUNTER → 2017-11-24 | Outpatient (CLI) | payer OTHER | LOC: CIMAGING 13:12 | PROVIDERS: ATTEND Internal Medicine Hematology & Oncology | DX: N63.23 Unspecified lump in the left breast, lower outer quadrant (principal) | CPT/HCPCS: 76641-PO ==

== ENCOUNTER → 2017-12-02 | Outpatient (CLI) | payer OTHER ==
[~2017-12-02] MED LIST changes: +BUPIVACAINE 0.5% 30 ML SDV ONE; -GADOBUTROL 10 ML VIAL IVP ONE; +LIDOCAINE 1% 300 MG/30 ML SDV ONE; +THROMBIN (BOVINE) 5,000 UNIT VIAL TP ONE
== END ==
LOC: FIMAGING 07:27
PROVIDERS: ATTEND Internal Medicine Hematology & Oncology
PROC: 0HBU3ZX Excision of Left Breast, Percutaneous Approach, Diagnostic (ICD-10-PCS; principal; 2017-12-02)
DX: C50.512 Malignant neoplasm of lower-outer quadrant of left female breast (principal)

== ENCOUNTER 2017-12-25 06:24 | Day surgery (SDC) | payer OTHER ==
[2017-12-25] MEDS ORDERED: ceFAZolin 2 GM/DEXTROSE 100 ML IV ONE (06:39)
[2017-12-25] MEDS ORDERED: LR 1,000 ML IV ONE (06:39)
[2017-12-25] MEDS ORDERED: LIDOCAINE 1% 2 ML INJ ID PRN (06:39)
[2017-12-25] MEDS ORDERED: LIDOCAINE 1% 300 MG/30 ML SDV ONE (07:46)
[2017-12-25] MEDS ORDERED: BUPIVACAINE 0.5% 30 ML SDV ONE (09:57)
[2017-12-25] MEDS ORDERED: MIDAZOLAM 2 MG/2 ML VIAL IVP ONE (10:38)
--- NOTE | 2017-12-25 10:38 | PDANEPAE ---
ANE History of Present Illness Breast cancer ANE Past Medical History - Cardiovascular History Hx Hypertension: No Hx Arrhythmias: No Hx Chest Pain: No Hx Coronary Artery / Peripheral Vascular Disease: No Hx CHF / Valvular Disease: No Hx Palpitations: Yes Cardiovascular History Comment: hypercholesterolemia. 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 hx of arterial clot to LLE, thrombectomy with stent in 2013 - Pulmonary History Hx COPD: Yes Hx Asthma/Reactive Airway Disease: No Hx Recent Upper Respiratory Infection: No Hx Oxygen in Use at Home: No Hx Sleep Apnea: No Sleep Apnea Screening Result - Last Documented: Negative Pulmonary History Comment: no inhalers currently. hx of PE on Pradaxa will hold one day prior per Harjit and Sary recommendations - Neurologic History Hx Cerebrovascular Accident: No Hx Seizures: No Hx Dementia: No Neurologic History Comment: neuropathy to hands and feet - Endocrine History Hx Diabetes: No Endocrine History Comment: hx of glucose intolerance - Renal History Hx Renal Disorders: No Renal History Comment: hx of renal insufficency - Liver History Hx Hepatic Disorders: No - Neurological & Psychiatric Hx Hx Neurological and Psychiatric Disorders: No Neurological / Psychiatric History Comment: neuropathy R/T surgery - Cancer History Hx Cancer: Yes Cancer History Comment: current lung ca - right upper lobe. non- hodgkins lymphoma - Congenital Disorder History Hx Congenital Disorders: No - GI History Hx Gastrointestinal Disorders: Yes Gastrointestinal History Comment: hx of diverticulitis that ruptured colon that needed emergent colon resection and permanent colostomy placed - Other Health History Other Health History: wears glasses - Chronic Pain History Chronic Pain: Yes (neuropathy to hands and feet) - Surgical History Prior Surgeries: 05/03/17 egd with bx with Jacobo. 03/13/17 left internal jugular vein port placement with Harjit. 02/17/17 excision of supra clavicular node (right) with Harjit. ruptured colon with resection and colostomy placed 2013. thrombectomy with stent 2013 d/t clot ANE Review of Systems Review of Systems: - Exercise capacity METS (RN): 4 METS ANE Patient History - Allergies Allergies/Adverse Reactions: oxycodone Allergy (Verified 12/22/17 11:16) Itching - Home Medications Home medications: home medication list seen and reviewed Home Medications: Atorvastatin Calcium [Lipitor 20 mg (*)] 02/13/17 [Last Taken 1 Day Ago ~] Aspirin EC [Aspirin EC 81 mg (*)] 02/17/17 [Last Taken 1 Day Ago ~12/24/17] Herbals/Supplements -Info Only 02/24/17 [Last Taken 12/22/17] Gabapentin [Neurontin 300 MG (*)] 05/02/17 [Last Taken 12/25/17] Metoprolol Succinate PRN 12/22/17 [Last Taken 1 Year Ago ~12/25/16] [place] 5/325 (*) 12/22/17 [Last Taken 1 Day Ago ~12/24/17] Pradaxa 12/22/17 [Last Taken 2 Days Ago ~12/23/17] Spiriva Handihaler INTRAVENTR DAILY 12/25/17 [Last Taken 12/25/17] - NPO status NPO Status: no food or drink >8 hours (Sips water over 3 hours ago) NPO Since - Liquids (Date): 12/25/17 NPO Since - Liquids (Time): 06:48 NPO Since - Solids (Date): 12/24/17 NPO Since - Solids (Time): 17:30 - Anes Hx Anes Hx: no prior problems - Smoking Hx Smoking Status: Former smoker - Family Anes Hx Family Hx Anesthesia Complications: none ANE Labs/Vital Signs - Vital Signs Blood Pressure: 120/66 Heart Rate: 88 Respiratory Rate: 16 O2 Sat (%): 96 Height: 157 cm Weight: 73 kg ANE Physical Exam - Airway Neck exam: decreased ROM Mallampati Score: Class 2 Mouth exam: normal dental/mouth exam (Missing teeth) - Pulmonary Pulmonary: no respiratory distress - Cardiovascular Cardiovascular: regular rate and rhythym - ASA Status ASA Status: III ANE Anesthesia Plan Anesthesia Plan: GA w LMA
[2017-12-25] MEDS ORDERED: fentaNYL 100 MCG/2 ML INJ ONE ×2 (10:44→12:35)
[2017-12-25] MEDS ORDERED: PROPOFOL 200 MG/20 ML VIAL ONE (10:44)
[2017-12-25] MEDS ORDERED: LIDOCAINE 2% 2 ML INJ ONE (10:44)
[2017-12-25] MEDS ORDERED: DEXAMETHASONE 4 MG/ML VIAL ONE (11:24)
[2017-12-25] MEDS ORDERED: ONDANSETRON 4 MG/2 ML VIAL ONE (11:24)
[2017-12-25] MEDS ORDERED: NALOXONE HCL 0.4 MG/ML INJ IVP PRN (11:27)
[2017-12-25] MEDS ORDERED: ONDANSETRON 4 MG/2 ML VIAL IVP PRN (11:27)
--- NOTE | 2017-12-25 12:09 | POSTOPPROG ---
Post Op Note Date of Operation: 12/25/17 Surgeon: Katarzyna Lombardi Anesthesiologist: oswaldo Anesthesia: GET(General Endotracheal) Pre-op Diagnosis: invasive ductal carcinoma Post-op Diagnosis: same Indication: 72 yo with breast ca Procedure: L needle loc lump L SLN Findings: postive node Inf/Abcess present in the surg proc area at time of surgery?: No EBL: Minimal Specimen(s): breast tissue and sln
--- NOTE | 2017-12-25 12:18 | POSTANESTH ---
Post Anesthetic Evaluation Cardiovascular Status: Similar to Pre-Op Cond Respiratory Status: Similar to Pre-op Cond. Level of Consciousness/Mental Status: Alert and Oriented, Mildly Sleepy, Arousable Pain Control: Adequate, Prn Tx Ordered Nausea/Vomiting Control: Adequate, Prn Tx Ordered Complications Possibly Related to Anesthesia: None Noted
[2017-12-25] MEDS: fentaNYL 100 MCG/2 ML INJ IVP PRN ×2 (12:37→13:18)
[2017-12-25 14:29] VITALS: BP 103/64
--- NOTE | 2017-12-25 14:59 | GOP ---
DATE OF OPERATION: 12/25/2017 SURGEON: Katarzyna Lombardi MD ANESTHESIA: General. ANESTHESIOLOGIST: Oscar Capps MD. PREOPERATIVE DIAGNOSIS: Left breast lower outer invasive ductal carcinoma. POSTOPERATIVE DIAGNOSIS: Left breast lower outer invasive ductal carcinoma. PROCEDURE PERFORMED: Left needle localized lumpectomy and left sentinel lymph node. FINDINGS: Wire in proper position. No clip in the specimen. [place] lymph nodes was negative and palpable node was positive. SPECIMENS: Left breast lumpectomy, additional margins, and left sentinel lymph node. ESTIMATED BLOOD LOSS: 10 cc. INDICATIONS: The patient is a 72-year-old woman with metastatic lung cancer. She also has breast cancer. She presents for lumpectomy. DESCRIPTION OF PROCEDURE: Patient was brought into the operating room and placed supine on the table, and general anesthesia was administered. Her left breast and axilla were prepped and draped in the usual sterile fashion. Infiltrated all sites with 0.5% Marcaine prior to making incisions. I made an ellipse around the wire. I made superior and inferior skin flaps and dissected down beyond the level of the wire. The breast tissue was extremely fatty. I dissected down to the level of the pectoralis and inked green anterior, red superior, yellow medial, blue inferior, orange lateral, and black posterior and submitted this to Radiology. The wire appeared to be in the correct position, but there was no clip in the specimen I took an additional superior margin inked red, medial margin inked yellow, inferior margin inked blue, lateral margin inked orange, and posterior margin inked black. Hemostasis achieved in the cavity. Clips placed. Deep layer closed with 3-0 Vicryl. Skin closed with 3-0 Vicryl followed by 4-0 Monocryl. In a similar fashion, I made an incision at the beneath the hair-bearing portion of the axilla. I broke into the axillary space. I used the gamma probe to identify the sentinel lymph node. As I was doing this, I felt a palpable node underneath the pectoralis, which I excised and sent to Pathology. I also found the sentinel lymph node, which measured 2500, and the background was quiet. This was submitted to Pathology. The palpable node is positive for metastatic cancer. The true sentinel lymph node did not have cancer. Hemostasis achieved in the cavity. Wound closed with 3-0 Vicryl followed by 4-0 Monocryl, Mastisol, Steri-Strips, sterile dressing applied. She was awakened in the operating room, extubated, and transferred to PACU in stable condition. /[id number]/MODL MTDD
== END 2017-12-25 14:18 | disposition home or self-care (01) ==
LOC: FIMAGING 06:24
PROVIDERS: ATTEND Surgery
DX: C50.512 Malignant neoplasm of lower-outer quadrant of left female breast (principal)
CPT/HCPCS: 19302; 76098; 78195; A9520; J0690; J1100; J2250; J2405; J2704; J3010

== ENCOUNTER → 2018-03-12 | Outpatient (CLI) | payer OTHER ==
[~2018-03-12] MED LIST changes: -BUPIVACAINE 0.5% 30 ML SDV ONE; +IOPAMIDOL (ISOVUE 370) 75 ML BTL IV ONE; -LIDOCAINE 1% 300 MG/30 ML SDV ONE; -THROMBIN (BOVINE) 5,000 UNIT VIAL TP ONE
== END | disposition home or self-care (01) ==
LOC: FIMAGING 12:28
PROVIDERS: ATTEND Internal Medicine Hematology & Oncology
DX: R07.89 Other chest pain (principal); I25.10 Atherosclerotic heart disease of native coronary artery without angina pectoris; C34.11 Malignant neoplasm of upper lobe, right bronchus or lung; Z85.3 Personal history of malignant neoplasm of breast; Z86.711 Personal history of pulmonary embolism
CPT/HCPCS: 71275; J1642; Q9967